=== PATIENT | male | born 1945 | race Caucasian/White ===

== ENCOUNTER 2016-09-19 15:02 | Inpatient (IN) ==
[2016-09-19] MEDS ORDERED: ASPIRIN 325 MG TABLET PO STA (16:25)
[2016-09-19] MEDS ORDERED: NITROGLYCERIN SL 0.4 MG TABLET SL STA (16:25)
--- NOTE | 2016-09-19 16:29 | Emergency Department Note ---
Arrival - Arrival Chief Complaint: Chest Pain Stated Complaint: chest pain/headaches/stomach ache ED Nursing Triage Note: reports pain in center of chest center of abdomen and h/ a that started one week. denies n/v/d. Mode of Arrival: Ambulatory Limitations: No Limitations Source: Patient, Family Time Seen by Provider: 09/19/16 16:10 - History of Present Illness HPI Narrative: The patient complains of a headache, dull, upper sternum and abdominal pain for the past 2 days. He has had some nausea but no vomiting or diaphoresis. He has had some shortness of breath with exertion "lately" but this started well before the chest pain. He notes no exacerbating or relieving factors. Patient has a history of hypertension, CHF and diabetes. He has had a cath in the past but does not know whether he has a stent or not. Allergies/Adverse Reactions: Allergies Allergy/AdvReac Type Severity Reaction Status Date / Time No Known Allergies Allergy Unverified 09/19/16 15:10 Home Medications: Home Medications Medication Instructions Recorded Confirmed Type Atorvastatin Calcium 20 mg PO BEDTIME 09/19/16 09/19/16 History Carvedilol [Coreg] 25 mg PO BID 09/19/16 09/19/16 History Finasteride [Proscar] 5 mg PO BEDTIME 09/19/16 09/19/16 History Furosemide Tab [Lasix Tab] 80 mg PO DAILY 09/19/16 09/19/16 History Losartan Potassium [Cozaar] 100 mg PO DAILY 09/19/16 09/19/16 History Magnesium 250 mg PO QAM 09/19/16 09/19/16 History Metformin HCl 500 mg PO BID 09/19/16 09/19/16 History Omeprazole [Prilosec] 20 mg PO DAILY 09/19/16 09/19/16 History Potassium Chloride 20 mg PO BID 09/19/16 09/19/16 History Ranolazine [Ranexa] 500 mg PO BID 09/19/16 09/19/16 History Tamsulosin [Flomax] 0.4 mg PO BEDTIME 09/19/16 09/19/16 History Warfarin [Coumadin] 4 mg PO TUTHSA 09/19/16 09/19/16 History Warfarin [Coumadin] 6 mg PO SUMOWEFR 09/19/16 09/19/16 History amLODIPine [Norvasc] 10 mg PO DAILY 09/19/16 09/19/16 History cloNIDine HCl [Clonidine HCl] 0.1 mg PO BID 09/19/16 09/19/16 History glipiZIDE [Glipizide] 10 mg PO BID 09/19/16 09/19/16 History Review of System - Review of System 12 point system: reviewed and no additional remarkable complaints except as stated - Review of System Constitutional: Absent: fever Respiratory: Absent: cough, respiratory distress, wheezing Cardiovascular: Present: chest pain, dyspnea on exertion, edema (Chronic). Absent: palpitations, orthopnea Gastrointestinal: Present: abdominal pain, nausea. Absent: vomiting, diarrhea, constipation Musculoskeletal: Present: neck pain. Absent: arm pain, back pain Neurological: Present: headache Medical,Surgical,& Family Hx - Medical History Cardio: History of: CHF, Hypertension Endocrine: History of: Diabetes Mellitus (NIDDM), Dyslipidemia - Surgical History Cardiac Surgeries: Sugical HX of: Cardiac Catheterization (Results are unknown) - Family History Family History: noncontributory - Social History Smoking Status: Never smoker Exam Physical Examination: GENERAL: Alert. No acute distress. HEENT: Normocephalic and atraumatic. There is no nasal drainage. No pharyngeal erythema or exudate. NECK: Normal inspection. Supple. No lymphadenopathy or meningismus. LUNGS: No respiratory distress. Clear to auscultation bilaterally, no wheezes, rales or rhonchi. HEART: Regular rate and rhythm. 2/6 systolic murmur. ABDOMEN: Soft, nontender and nondistended with normoactive bowel sounds. Morbidly obese. Small left lower abdominal wall hernia. Easily reduced. Nontender. BACK: Normal inspection. SKIN: Color normal. Warm and dry. EXTREMITIES: Nontender. Normal range of motion. Pitting edema to the mid tibias bilaterally. NEUROLOGICAL/PSYCHIATRIC: Alert and oriented -3 with normal mood and affect. Cranial nerves normal. No motor or sensory deficit. Vital Signs: Vital Signs Temperature 98.4 F 09/19/16 15:07 Pulse Rate 60 09/19/16 15:07 Respiratory Rate 18 09/19/16 16:15 Blood Pressure 137/84 09/19/16 15:07 O2 Sat by Pulse Oximetry 95 09/19/16 15:07 Course - Reevaluation(s) Reevaluation #1: The patient's workup is essentially negative, however, he has multiple risk factors and will need to be admitted for rule out. I have discussed the patient with the hospitalist service who will see him and admit. Time: 18:22 Results - Labs CBC & BMP: 09/19/16 16:55 09/19/16 16:55 Lab Results: I have reviewed the patients labs - Impressions Chest x-ray shows:Mild platelike scar or subsegmental atelectasis left lung base. No acute abnormality or significant change otherwise KUB shows no acute abnormality. EKG shows a sinus bradycardia at 55 with a nonspecific intraventricular conduction delay and a nonspecific ST T-wave abnormality.
[2016-09-19 17:07] LABS: Basophils % 0.5 % (0.0-0.8); Eosinophils # 0.1 10*3/uL (0.0-0.87); Eosinophils % 0.8 % (0.00-10.9); Hematocrit 33.6 VOL% (42.0-52.0); Hemoglobin 11.2 GM/DL (14.0-18.0); Immature Granulocytes % 0.3 %; Immature Granulocytes Absolute 0.02 #; Lymphocytes # 2.6 10*3/uL (1.4-4.0); Lymphocytes % 33.9 % (21.2-54.2); Mean Corpuscular HGB Conc 33.3 GM/DL (32-36); Mean Corpuscular Hemoglobin 28 PG (27-34); Mean Corpuscular Volume 85.3 FL (87-102); Mean Platelet Volume 10.1 FL (9.6-12.0); Monocytes # 0.7 10*3/uL (0.11-0.8); Monocytes % 9.1 % (1.7-12.7); Neutrophils # 4.2 10*3/uL (1.4-7.4); Neutrophils % 55.4 % (38.7-73.9); Platelet Count 214 T/CUMM (130-400); Red Blood Count 3.94 MC/CUMM (3.8-5.5); White Blood Count 7.7 T/CUMM (4-12)
--- NOTE | 2016-09-19 17:10 | XRay Report ---
History: Chest pain Date: 09/19/2016 Study: Chest x-ray AP portable Comparison exam: May 04, 2008 chest x-ray The cardiac silhouette is not enlarged. There is no mediastinal mass. The pulmonary vasculature is not engorged. The lungs are clear except for some minor platelike scar or subsegmental atelectasis in the lingula. There is no gross pleural effusion. There is mild thoracic spondylosis. There is no acute osseous abnormality. Impression: Mild platelike scar or subsegmental atelectasis left lung base. No acute abnormality or significant change otherwise PROCEDURE INTERPRETED AT [facility] DEPARTMENT OF RADIOLOGY Final Report Signed by: Dr. Kristen Jones
--- NOTE | 2016-09-19 17:11 | XRay Report ---
History: Abdominal pain Date: 09/19/2016 Study: KUB Comparison exam: No previous similar The bowel gas pattern is nonobstructive without gross mass lesion. Some scattered stool and air are noted in the normal caliber colon. Surgical clips and maricruz overlie the right upper abdomen. There is moderate lumbar spondylosis. Phleboliths overlie the left hemipelvis. Impression: No definite acute abnormality PROCEDURE INTERPRETED AT [facility] DEPARTMENT OF RADIOLOGY Final Report Signed by: Dr. Kristen Jones
[2016-09-19] MEDS ORDERED: ASPIRIN 325 MG TABLET ONE (17:13)
[2016-09-19] MEDS ORDERED: NITROGLYCERIN SL 0.4 MG TABLET SL ONE (17:13)
[2016-09-19 17:23] LABS: D-Dimer <= 0.5 MG/L FEU; INR 1.9; PT Patient Result 20.7 SECS; Partial Thromboplastin Time 32.7 SECS (0-40)
[2016-09-19 17:46] LABS: Alanine Aminotransferase 32 U/L (16-61); Albumin 3.2 G/DL (3.4-5.0); Alkaline Phosphatase 56 U/L (45-117); Amylase 92 U/L (25-115); Aspartate Amino Transferase 22 U/L (0-37); Blood Urea Nitrogen 32 MG/DL (7-18); Calcium 8.8 MG/DL (8.5-10.1); Glucose 140 MG/DL (74-106); Osmolality,Calculated 285.5 MOS/KG (273-304); Potassium 3.2 MMOL/L (3.5-5.1); Sodium 139 MMOL/L (136-145); Total Protein 6.5 G/DL (6.4-8.3); Troponin I Only < 0.015 NG/ML (0.00-0.045)
[2016-09-19 17:52] LABS: Free T4 (Free Thyroxine) 1.03 NG/DL (0.76-1.46); Thyroid Stimulating Hormone 1.86 uIU/ml (0.358-3.74)
--- NOTE | 2016-09-19 19:02 | Hospitalist History & Physical ---
<Luz Maria Rey - Last Filed: 09/19/16 18:56> Assessment and Plan (1) Chest pain Status: Acute Assessment and plan: Admit to telemetry. Serial cardial enzymes and EKGs. Echo in am. consult cardiology. BMP in am. Current Visit: Yes (2) Hypertension Status: Acute Assessment and plan: Restart home meds. Monitor routine vitals. Current Visit: Yes (3) Dyslipidemia Status: Acute Assessment and plan: Lipid panel in am. Restart home meds. Current Visit: Yes (4) Hypokalemia Status: Acute Assessment and plan: K 3.2 Replace potassium. Recheck in am. Current Visit: Yes (5) Congestive heart failure (CHF) Status: Acute Assessment and plan: BNP is 56. Pt. takes lasix 80 daily. Current Visit: Yes (6) Diabetes Status: Acute Assessment and plan: Accuchecks ACHS. SSI. Hgb A1c in am. Current Visit: Yes (7) History of TIA (transient ischemic attack) Status: Chronic Current Visit: Yes History of Present Illness Chief complaint: Chest pain History of present illness: Mr. Leach is a 71 year old obese white male with a history of GERD, hypertension , CHF, TIA, diabetes, dyslipidemia, and BPH presents to the ED with complaints of chest pain. Patient states that he has been experiencing this chest pain on and off for the last several months but has gradually worsened over the last 2 days. Patient states that the pain is located on the left side of his chest and sometimes radiates into his neck. The pain is described as dull and occurred at rest and with movement. Patient denies vomiting or diaphoresis but reports some nausea and shortness of breath in conjunction with the chest pain. Patient states he has a family history of heart disease with a older brother dying from heart attack. Patient's PCP is Dr. Cheng. Patient denies any other complaints in the ED at this time. Patient's case has been discussed with Dr. Garcia and the patient will be admitted to the hospitalist service for further evaluation and treatment. Home Medications Medication Instructions Recorded Confirmed Type Atorvastatin Calcium 20 mg PO BEDTIME 09/19/16 09/19/16 History Carvedilol [Coreg] 25 mg PO BID 09/19/16 09/19/16 History Finasteride [Proscar] 5 mg PO BEDTIME 09/19/16 09/19/16 History Furosemide Tab [Lasix Tab] 80 mg PO DAILY 09/19/16 09/19/16 History Losartan Potassium [Cozaar] 100 mg PO DAILY 09/19/16 09/19/16 History Magnesium 250 mg PO QAM 09/19/16 09/19/16 History Metformin HCl 500 mg PO BID 09/19/16 09/19/16 History Omeprazole [Prilosec] 20 mg PO DAILY 09/19/16 09/19/16 History Potassium Chloride 20 mg PO BID 09/19/16 09/19/16 History Ranolazine [Ranexa] 500 mg PO BID 09/19/16 09/19/16 History Tamsulosin [Flomax] 0.4 mg PO BEDTIME 09/19/16 09/19/16 History Warfarin [Coumadin] 4 mg PO TUTHSA 09/19/16 09/19/16 History Warfarin [Coumadin] 6 mg PO SUMOWEFR 09/19/16 09/19/16 History amLODIPine [Norvasc] 10 mg PO DAILY 09/19/16 09/19/16 History cloNIDine HCl [Clonidine HCl] 0.1 mg PO BID 09/19/16 09/19/16 History glipiZIDE [Glipizide] 10 mg PO BID 09/19/16 09/19/16 History Allergies Allergy/AdvReac Type Severity Reaction Status Date / Time No Known Allergies Allergy Unverified 09/19/16 15:10 Medical,Surgical,& Family Hx - Medical History Cardio: History of: CHF, Hypertension Neurology: History of: TIA Endocrine: History of: Diabetes Mellitus (NIDDM), Dyslipidemia Gastrointestinal: History of: GERD - Surgical History Cardiac Surgeries: Sugical HX of: Cardiac Catheterization (results are unknown) - Family History Family History: Reports;: Family Heart Disease - Social History Smoking Status: Never smoker Frequency of Alcohol Use: None Type of Drug Use: None Marital Status: Lives With:: Spouse Functional capacity: independent ambulation (but requests services for walker.) - Constitutional Constitutional: Present: weakness. Absent: chills, fever(s) - EENT Eyes: Present: requires corrective lense Ears: Present: decreased hearing Nose, mouth and throat: Present: headache(s). Absent: epistaxis - Cardiovascular Cardiovascular: Present: chest pain at rest, chest pain with activity, dyspnea, dyspnea on exertion, edema. Absent: diaphoresis - Respiratory Respiratory: Present: dyspnea on exertion. Absent: cough - Gastrointestinal Gastrointestinal: Present: nausea. Absent: abdominal pain, vomiting - Genitourinary Genitourinary: Present: urinary frequency - Psychiatric Psychiatric: Absent: anxiety, depression - Endocrine Endocrine: Present: heat intolerance, polyuria Exam - Constitutional Vitals: Period Temp Pulse Resp BP Sys/Mane Pulse Ox Last 24 Hr 98.4 F-98.4 F 60-60 18-20 137-137/84-84 95 General appearance: no acute distress, over weight - Head Head exam: Present: normal inspection, normocephalic - Eye Eye exam: Present: EOMI. Absent: scleral icterus Pupils: Present: JAJA. Absent: fixed - ENT ENT exam: Present: normal exam. Absent: normal oropharynx - Neck Neck exam: Present: normal inspection - Respiratory Respiratory exam: Present: clear to auscultation bilaterally. Absent: wheezes - Cardiovascular Cardiovascular exam: Present: regular rate and rhythm - GI/Abdominal GI/Abdominal exam: Present: normal bowel sounds, soft. Absent: tenderness - Extremities Exam Extremities exam: Present: normal capillary refill, edema - Neurological Exam Neurological exam: Present: alert, oriented X3 - Psychiatric Psychiatric exam: Present: normal affect, normal mood - Skin Skin exam: Present: normal color, warm Results - Labs CBC & BMP: 09/19/16 16:55 09/19/16 16:55 Lab Results: I have reviewed the past 24 hour labs <Patricia Garcia - Last Filed: 09/19/16 19:36> Assessment and Plan (1) Chest pain Status: Acute Current Visit: Yes (2) Congestive heart failure (CHF) Status: Acute Current Visit: Yes (3) Diabetes Status: Acute Assessment and plan: cont glipizide Current Visit: Yes (4) Dyslipidemia Status: Acute Current Visit: Yes (5) Hypertension Status: Acute Assessment and plan: hold coreg due to bradycardia Current Visit: Yes (6) Hypokalemia Status: Acute Current Visit: Yes (7) History of TIA (transient ischemic attack) Status: Chronic Assessment and plan: cont coumadin Current Visit: Yes (8) DENY (obstructive sleep apnea) Status: Acute Assessment and plan: consult Dr. Rousseau on Thursday Current Visit: Yes (9) Bradycardia Status: Acute Assessment and plan: hold, at risk for sleep apnea Current Visit: Yes (10) Acute on chronic renal failure Status: Acute Assessment and plan: gentle hydration, hold lasix Current Visit: Yes History of Present Illness History of present illness: Mr. Leach is a 71 year old male seen and examined. History and physical reviewed and edited. - Genitourinary Genitourinary: Absent: dysuria - Musculoskeletal Musculoskeletal: Absent: arthralgias - Neurological Neurological: Absent: confusion, headache(s), syncope - Endocrine Endocrine: Present: fatigue - Hematologic/Lymphatic Hematologic/Lymphatic: Present: easy bleeding, easy bruising Exam - Constitutional Vitals: Period Temp Pulse Resp BP Sys/Mane Pulse Ox Last 24 Hr 98.4 F-98.4 F 45-60 17-21 137-172/76-98 95-100 - ENT ENT exam: Present: normal external ear exam - Neck Neck exam: Absent: thyromegaly - Cardiovascular Cardiovascular exam: Present: bradycardia, regular rate and rhythm. Absent: systolic murmur - GI/Abdominal GI/Abdominal exam: Absent: distended - Neurological Exam Neurological exam: Present: CN II-XII intact, reflexes normal. Absent: motor sensory deficit Results - Labs CBC & BMP: 09/19/16 16:55 09/19/16 16:55 - Diagnostic Findings Procedure: Chest x-ray: report reviewed by me (left atelectasis), KUB x-ray: report reviewed by me (scattered stool )
[2016-09-19] MEDS ORDERED: LACTULOSE 160 GM/240 ML BOTTLE PO SCH (20:00)
[2016-09-19] MEDS ORDERED: ONDANSETRON 4 MG/2 ML VIAL IV PRN (20:01)
[2016-09-19] MEDS ORDERED: DEXTROSE 50% 25 GM/50 ML VIAL IV PRN (20:01)
[2016-09-19] MEDS ORDERED: ACETAMINOPHEN 325 MG TABLET PO PRN (20:01)
[2016-09-19] MEDS ORDERED: GLUCAGON 1 MG VIAL IM PRN (20:01)
[2016-09-19] MEDS: FINASTERIDE 5 MG TABLET PO SCH (22:49)
[2016-09-19] MEDS: ATORVASTATIN 20 MG TABLET PO SCH (22:49)
[2016-09-19] MEDS: TAMSULOSIN 0.4 MG CAPSULE PO SCH (22:49)
[2016-09-19] MEDS: glipiZIDE 10 MG TABLET PO SCH (22:49)
[2016-09-19] MEDS: SODIUM CHLOR 0.45% KCL 20 MEQ 20 MEQ/1,000 ML BAG IV SCH (22:49)
[2016-09-19] MEDS: INSULIN LISPRO 100 UNIT/ML SUBCUT SCH (22:50)
[2016-09-20 05:57] LABS: Calcium 8.3 MG/DL (8.5-10.1); Osmolality,Calculated 281.4 MOS/KG (273-304); Risk Ratio 3.03
[2016-09-20 06:32] LABS: Basophils % 0.2 % (0.0-0.8); Eosinophils # 0.1 10*3/uL (0.0-0.87); Eosinophils % 0.9 % (0.00-10.9); Hematocrit 21.7 VOL% (42.0-52.0); Immature Granulocytes % 0.3 %; Immature Granulocytes Absolute 0.02 #; Lymphocytes % 33.9 % (21.2-54.2); Mean Corpuscular HGB Conc 32.3 GM/DL (32-36); Mean Corpuscular Hemoglobin 28 PG (27-34); Mean Corpuscular Volume 87.9 FL (87-102); Mean Platelet Volume 10.6 FL (9.6-12.0); Monocytes # 0.4 10*3/uL (0.11-0.8); Monocytes % 7.1 % (1.7-12.7); Neutrophils # 3.3 10*3/uL (1.4-7.4); Neutrophils % 57.6 % (38.7-73.9); Platelet Count 118 T/CUMM (130-400); Red Blood Count 2.47 MC/CUMM (3.8-5.5); Red Cell Distribution Width 15.8 % (9.3-17.3); White Blood Count 5.8 T/CUMM (4-12)
[2016-09-20 06:42] LABS: INR 2.3
[2016-09-20 06:44] LABS: PT Patient Result 25.4 SECS
--- NOTE | 2016-09-20 06:48 | EKG Report ---
Stationary ECG Study [facility] ER Test Date: 09/19/2016 3:12:27 PM Pat Name: SARA DICKERSON Department: Room: 265 Gender: M [employer]: : 1945 Requested by: Aldo Griffith Order Number: [id number] Reading MD: SANJEEV JACKSON Intervals [place] Rate: 55 P: 42 CO: 142 QRS: 18 QRSD: 128 T: 71 QT: 439 QTc: 429 Interpretive Statements SINUS BRADYCARDIA NONSPECIFIC INTRAVENTRICULAR CONDUCTION DELAY Electronically Signed On 09-22-16 06:17:30 CDT by SANJEEV JACKSON [email or web address]
[2016-09-20] MEDS: SODIUM CHLOR 0.45% KCL 20 MEQ 20 MEQ/1,000 ML BAG IV SCH ×2 (06:56→16:20)
[2016-09-20 06:57] LABS: Apearance,Urine Slightly Hazy (Clear); Bacteria,Urine Occasional /HPF (Few); Bilirubin,Urine Negative (Negative); Blood, Urine Moderate mg/dL (Negative); Glucose,Urine (UA) Negative (Negative); Ketones,Urine Negative (Negative); Mucus,Urine Occasional /LPF (Occasional); Nitrite,Urine Negative (Negative); Protein,Urine Negative; RBC,Urine 24 /HPF (0-4); Squamous Epithelial Cell,Urine Few /HPF (0-10); Urine Specific Gravity 1.008 (1.001-1.035); Urine Urobilinogen < 2.0 EU/DL (0.2-1.0); WBC,Urine 120 /HPF (0-6)
[2016-09-20 06:58] LABS: Urine Color Light Yellow (Yellow)
[2016-09-20 07:04] LABS: Troponin I Only < 0.015 NG/ML (0.00-0.045)
[2016-09-20] MEDS ORDERED: ASPIRIN 325 MG TABLET PO SCH (09:00)
[2016-09-20] MEDS: INSULIN LISPRO 100 UNIT/ML SUBCUT SCH ×4 (09:03→22:05)
[2016-09-20] MEDS: POTASSIUM CHLORIDE 20 MEQ TABLET PO PRN (09:04)
[2016-09-20] MEDS: LACTULOSE 20 GM/30 ML UDCUP PO SCH ×2 (09:04→10:48)
[2016-09-20] MEDS: amLODIPine 10 MG TABLET PO SCH (09:04)
[2016-09-20] MEDS: glipiZIDE 10 MG TABLET PO SCH (09:04)
--- NOTE | 2016-09-20 10:23 | Cardiology Consult Note ---
Assessment and Plan (1) Bradycardia Status: Acute Current Visit: Yes (2) Congestive heart failure (CHF) Status: Acute Current Visit: Yes (3) Hypertension Status: Acute Current Visit: Yes (4) Anemia Status: Acute Assessment and plan: He has had a significant drop in his hematocrit from 33-21. I will stop his Coumadin. I will hold fresh frozen or vitamin K until we repeat his counts. Current Visit: Yes History of Present Illness - Consult Narrative Reason for consult: Chest discomfort with normal troponins History of present illness: Mr. Leach is a 71 year old male who has a history of atherosclerosis manifest as a history of TIAs. He is a diabetic and has a history of hypertension dyslipidemia. His family states that he has been experiencing chest pain over the last week to 10 days which he describes as an epigastric burning discomfort not associated with exertion. He has had some exertional dyspnea. He denies a history of palpitations or syncope. On admission his hematocrit was 33 and today is 21 which strongly suggest that he is GI bleeding. He flatly denies any history of bleeding. He has not had melena. Family states that he had been vomiting at home but no coffee grounds as best I can tell from the history. He is not orthostatic. He does complain of some dizziness on standing. He is admitted now for evaluation related to chest discomfort and a history of congestive heart failure. He has been told that he has had a heart murmur in the past as well as a history of an aneurysm. CC: Patricia Garcia MD - Home Medications and Allergies Home Medications: Home Medications Medication Instructions Recorded Confirmed Type Atorvastatin Calcium 20 mg PO BEDTIME 09/19/16 09/19/16 History Carvedilol [Coreg] 25 mg PO BID 09/19/16 09/19/16 History Finasteride [Proscar] 5 mg PO BEDTIME 09/19/16 09/19/16 History Furosemide Tab [Lasix Tab] 80 mg PO DAILY 09/19/16 09/19/16 History Losartan Potassium [Cozaar] 100 mg PO DAILY 09/19/16 09/19/16 History Magnesium 250 mg PO QAM 09/19/16 09/19/16 History Metformin HCl 500 mg PO BID 09/19/16 09/19/16 History Omeprazole [Prilosec] 20 mg PO DAILY 09/19/16 09/19/16 History Potassium Chloride 20 mg PO BID 09/19/16 09/19/16 History Ranolazine [Ranexa] 500 mg PO BID 09/19/16 09/19/16 History Tamsulosin [Flomax] 0.4 mg PO BEDTIME 09/19/16 09/19/16 History Warfarin [Coumadin] 4 mg PO TUTHSA 09/19/16 09/19/16 History Warfarin [Coumadin] 6 mg PO SUMOWEFR 09/19/16 09/19/16 History amLODIPine [Norvasc] 10 mg PO DAILY 09/19/16 09/19/16 History cloNIDine HCl [Clonidine HCl] 0.1 mg PO BID 09/19/16 09/19/16 History glipiZIDE [Glipizide] 10 mg PO BID 09/19/16 09/19/16 History Allergies/Adverse Reactions: Allergies Allergy/AdvReac Type Severity Reaction Status Date / Time No Known Allergies Allergy Unverified 09/19/16 15:10 Medical,Surgical,& Family Hx - Medical History Cardio: History of: CHF, Hypertension Neurology: History of: TIA Endocrine: History of: Diabetes Mellitus (NIDDM), Dyslipidemia Gastrointestinal: History of: GERD - Surgical History Cardiac Surgeries: Sugical HX of: Cardiac Catheterization (results are unknown) Neurologic Surgeries: Patient denies: Neurologic Surgery Abdominal Surgeries: Surgical HX of: Abdominal Surgery, Cholecystectomy, Hernia Repair Reproductive Surgeries: Patient denies;: Genitourinary Surgery - Family History Family History: Reports;: Family Heart Disease - Social History Smoking Status: Never smoker Frequency of Alcohol Use: None Type of Drug Use: None Physical Examination Vital Signs Temp Pulse Resp BP Pulse Ox 98.4 F 60 20 137/84 95 09/19/16 15:07 09/19/16 15:07 09/19/16 15:07 09/19/16 15:07 09/19/16 15:07 Exam: Physical examination: General: The patient is awake and alert and oriented -3. Mood and affect are normal. HEENT: Normocephalic, sclera are clear there are no lid xanthelasmas noted. Oral mucosa is free of cyanosis or pallor. Neck: The neck is supple without JVD. Carotid upstrokes are normal volume and amplitude. There is no audible bruit. There is no palpable thyroid. Trachea is midline. Chest: Lungs: The patient is comfortable at rest without intercostal retractions or abdominal breathing. There are no adventitial sounds rales rubs rhonchi or wheezes noted. Cardiovascular: The PMI is nondisplaced. No palpable thrill S3 or S4. There is a regular rate and rhythm with a grade 2 murmur of what sounds like aortic stenosis. He also has a murmur that is consistent with mitral insufficiency heard best at the lower left sternal border and apex.. Dorsalis pedis posterior tibial pulses are 1+ and equal and femoral pulses are 2+ and equal bilaterally. Abdomen: Abdomen is protuberant and nontender with normal active bowel sounds. There is no palpable mass or organomegaly noted. There is no midline bruit. Extremities exam: There is no cyanosis clubbing with 1+ pitting edema in the lower extremities bilaterally.. Skin: Skin is warm and dry without ecchymosis or urticaria or skin rash. There are no palpable nodules. Musculoskeletal: There is no kyphosis or scoliosis noted. Result/EKG - Labs CBC & BMP: 09/20/16 04:30 09/20/16 04:30 Labs: Laboratory Results - last 24 hr 09/19/16 09/19/16 09/19/16 16:55 16:55 16:55 WBC RBC Hgb Hct MCV MCH MCHC RDW Plt Count MPV Neut % (Auto) Lymph % (Auto) [place] % (Auto) Eos % (Auto) Baso % (Auto) Neut # (Auto) Lymph # (Auto) [place] # (Auto) Eos # (Auto) Baso # (Auto) Immature Gran % Nucleated RBC % Immature Gran # Nucleated RBCs # Immature Plt Fraction INR 1.9 PT Patient/Control Mix 20.7 D-Dimer, Quantitative <= 0.5 Circ Anticoag PTT 32.7 Sodium 139 Potassium 3.2 L Chloride 98 Carbon Dioxide 34 H Anion Gap 10.2 BUN 32 H Creatinine 2.00 H GFR Calculation 49 BUN/Creatinine Ratio 16.00 Glucose 140 H POC Glucose Hemoglobin A1c Calculated Osmolality 285.5 Calcium 8.8 Magnesium 2.0 Total Bilirubin 0.40 AST 22 ALT 32 Alkaline Phosphatase 56 Total Creatine Kinase 76 CK-MB (CK-2) < 1.0 Troponin I < 0.015 B-Natriuretic Peptide 56 Total Protein 6.5 Albumin 3.2 L Globulin 3.3 Albumin/Globulin Ratio 0.9 L Triglycerides Cholesterol LDL Cholesterol VLDL Cholesterol HDL Cholesterol Heart Disease Risk Ratio Amylase 92 Lipase 249.0 Free T4 TSH 3rd Generation Urine Color Urine Appearance Urine pH Ur Specific [place] Urine Protein Urine Glucose (UA) Urine Ketones Urine Blood Urine Nitrate Urine Bilirubin Urine Urobilinogen Urine Leukocytes Urine RBC Urine WBC Ur Squamous Epith Cells Urine Bacteria Urine Mucus Ur Culture Indicated? 09/19/16 09/19/16 09/19/16 16:55 16:55 20:19 WBC 7.7 RBC 3.94 Hgb 11.2 L Hct 33.6 L MCV 85.3 L MCH 28 MCHC 33.3 RDW 16.0 Plt Count 214 MPV 10.1 Neut % (Auto) 55.4 Lymph % (Auto) 33.9 Woodward % (Auto) 9.1 Eos % (Auto) 0.8 Baso % (Auto) 0.5 Neut # (Auto) 4.2 Lymph # (Auto) 2.6 Woodward # (Auto) 0.7 Eos # (Auto) 0.1 Baso # (Auto) 0.0 Immature Gran % 0.3 Nucleated RBC % 0.0 Immature Gran # 0.02 Nucleated RBCs # 0.00 Immature Plt Fraction 0.0 INR PT Patient/Control Mix D-Dimer, Quantitative Circ Anticoag PTT Sodium Potassium Chloride Carbon Dioxide Anion Gap BUN Creatinine GFR Calculation BUN/Creatinine Ratio Glucose POC Glucose Hemoglobin A1c Calculated Osmolality Calcium Magnesium Total Bilirubin AST ALT Alkaline Phosphatase Total Creatine Kinase CK-MB (CK-2) Troponin I < 0.015 B-Natriuretic Peptide Total Protein Albumin Globulin Albumin/Globulin Ratio Triglycerides Cholesterol LDL Cholesterol VLDL Cholesterol HDL Cholesterol Heart Disease Risk Ratio Amylase Lipase Free T4 1.03 TSH 3rd Generation 1.860 Urine Color Urine Appearance Urine pH Ur Specific [place] Urine Protein Urine Glucose (UA) Urine Ketones Urine Blood Urine Nitrate Urine Bilirubin Urine Urobilinogen Urine Leukocytes Urine RBC Urine WBC Ur Squamous Epith Cells Urine Bacteria Urine Mucus Ur Culture Indicated? 09/19/16 09/19/16 09/20/16 21:40 23:44 04:30 WBC RBC Hgb Hct MCV MCH MCHC RDW Plt Count MPV Neut % (Auto) Lymph % (Auto) Woodward % (Auto) Eos % (Auto) Baso % (Auto) Neut # (Auto) Lymph # (Auto) [place] # (Auto) Eos # (Auto) Baso # (Auto) Immature Gran % Nucleated RBC % Immature Gran # Nucleated RBCs # Immature Plt Fraction INR PT Patient/Control Mix D-Dimer, Quantitative Circ Anticoag PTT Sodium Potassium Chloride Carbon Dioxide Anion Gap BUN Creatinine GFR Calculation BUN/Creatinine Ratio Glucose POC Glucose 101 Hemoglobin A1c Calculated Osmolality Calcium Magnesium Total Bilirubin AST ALT Alkaline Phosphatase Total Creatine Kinase CK-MB (CK-2) Troponin I < 0.015 < 0.015 B-Natriuretic Peptide Total Protein Albumin Globulin Albumin/Globulin Ratio Triglycerides Cholesterol LDL Cholesterol VLDL Cholesterol HDL Cholesterol Heart Disease Risk Ratio Amylase Lipase Free T4 TSH 3rd Generation Urine Color Urine Appearance Urine pH Ur Specific [place] Urine Protein Urine Glucose (UA) Urine Ketones Urine Blood Urine Nitrate Urine Bilirubin Urine Urobilinogen Urine Leukocytes Urine RBC Urine WBC Ur Squamous Epith Cells Urine Bacteria Urine Mucus Ur Culture Indicated? 09/20/16 09/20/16 09/20/16 04:30 04:30 04:30 WBC 5.8 RBC 2.47 L D Hgb 7.0 L D Hct 21.7 L MCV 87.9 MCH 28 MCHC 32.3 RDW 15.8 Plt Count 118 L D MPV 10.6 Neut % (Auto) 57.6 Lymph % (Auto) 33.9 Woodward % (Auto) 7.1 Eos % (Auto) 0.9 Baso % (Auto) 0.2 Neut # (Auto) 3.3 Lymph # (Auto) 2.0 Woodward # (Auto) 0.4 Eos # (Auto) 0.1 Baso # (Auto) 0.0 Immature Gran % 0.3 Nucleated RBC % 0.0 Immature Gran # 0.02 Nucleated RBCs # 0.00 Immature Plt Fraction 0.0 INR PT Patient/Control Mix D-Dimer, Quantitative Circ Anticoag PTT Sodium 140 Potassium 3.0 L Chloride 100 Carbon Dioxide 31 Anion Gap 12.0 BUN 27 H Creatinine 1.60 H GFR Calculation 64 BUN/Creatinine Ratio 16.00 Glucose 70 L POC Glucose Hemoglobin A1c Calculated Osmolality 281.4 Calcium 8.3 L Magnesium Total Bilirubin AST ALT Alkaline Phosphatase Total Creatine Kinase CK-MB (CK-2) Troponin I B-Natriuretic Peptide 46 Total Protein Albumin Globulin Albumin/Globulin Ratio Triglycerides 165 H Cholesterol 115 LDL Cholesterol 51.0 VLDL Cholesterol 33.0 HDL Cholesterol 38 L Heart Disease Risk Ratio 3.03 Amylase Lipase Free T4 TSH 3rd Generation Urine Color Urine Appearance Urine pH Ur Specific [place] Urine Protein Urine Glucose (UA) Urine Ketones Urine Blood Urine Nitrate Urine Bilirubin Urine Urobilinogen Urine Leukocytes Urine RBC Urine WBC Ur Squamous Epith Cells Urine Bacteria Urine Mucus Ur Culture Indicated? 09/20/16 09/20/16 09/20/16 04:30 04:30 04:30 WBC RBC Hgb Hct MCV MCH MCHC RDW Plt Count MPV Neut % (Auto) Lymph % (Auto) [place] % (Auto) Eos % (Auto) Baso % (Auto) Neut # (Auto) Lymph # (Auto) [place] # (Auto) Eos # (Auto) Baso # (Auto) Immature Gran % Nucleated RBC % Immature Gran # Nucleated RBCs # Immature Plt Fraction INR 2.3 PT Patient/Control Mix 25.4 D D-Dimer, Quantitative Circ Anticoag PTT Sodium Potassium Chloride Carbon Dioxide Anion Gap BUN Creatinine GFR Calculation BUN/Creatinine Ratio Glucose POC Glucose Hemoglobin A1c 6.3 Calculated Osmolality Calcium Magnesium Total Bilirubin AST ALT Alkaline Phosphatase Total Creatine Kinase 63 CK-MB (CK-2) 1.1 Troponin I < 0.015 B-Natriuretic Peptide Total Protein Albumin Globulin Albumin/Globulin Ratio Triglycerides Cholesterol LDL Cholesterol VLDL Cholesterol HDL Cholesterol Heart Disease Risk Ratio Amylase Lipase Free T4 TSH 3rd Generation Urine Color Urine Appearance Urine pH Ur Specific [place] Urine Protein Urine Glucose (UA) Urine Ketones Urine Blood Urine Nitrate Urine Bilirubin Urine Urobilinogen Urine Leukocytes Urine RBC Urine WBC Ur Squamous Epith Cells Urine Bacteria Urine Mucus Ur Culture Indicated? 09/20/16 09/20/16 06:38 07:09 WBC RBC Hgb Hct MCV MCH MCHC RDW Plt Count MPV Neut % (Auto) Lymph % (Auto) [place] % (Auto) Eos % (Auto) Baso % (Auto) Neut # (Auto) Lymph # (Auto) [place] # (Auto) Eos # (Auto) Baso # (Auto) Immature Gran % Nucleated RBC % Immature Gran # Nucleated RBCs # Immature Plt Fraction INR PT Patient/Control Mix D-Dimer, Quantitative Circ Anticoag PTT Sodium Potassium Chloride Carbon Dioxide Anion Gap BUN Creatinine GFR Calculation BUN/Creatinine Ratio Glucose POC Glucose 99 Hemoglobin A1c Calculated Osmolality Calcium Magnesium Total Bilirubin AST ALT Alkaline Phosphatase Total Creatine Kinase CK-MB (CK-2) Troponin I B-Natriuretic Peptide Total Protein Albumin Globulin Albumin/Globulin Ratio Triglycerides Cholesterol LDL Cholesterol VLDL Cholesterol HDL Cholesterol Heart Disease Risk Ratio Amylase Lipase Free T4 TSH 3rd Generation Urine Color Light yellow Urine Appearance Slightly hazy Urine pH 7.0 Ur Specific [place] 1.008 Urine Protein Negative Urine Glucose (UA) Negative Urine Ketones Negative Urine Blood Moderate Urine Nitrate Negative Urine Bilirubin Negative Urine Urobilinogen < 2.0 H Urine Leukocytes Large H Urine RBC 24 Urine WBC 120 Ur Squamous Epith Cells Few Urine Bacteria Occasional Urine Mucus Occasional Ur Culture Indicated? Results to follow
[2016-09-20] MEDS ORDERED: POTASSIUM CHLORIDE 20 MEQ TABLET PO ONE (10:36)
[2016-09-20] MEDS ORDERED: SODIUM CHLORIDE 0.9% 250 ML IV PRN (10:40)
[2016-09-20 10:51] LABS: Hematocrit 34.2 VOL% (42.0-52.0)
[2016-09-20 10:53] LABS: Hemoglobin 11.3 GM/DL (14.0-18.0)
[2016-09-20 11:15] LABS: Calcium 8.4 MG/DL (8.5-10.1); Osmolality,Calculated 281.7 MOS/KG (273-304); Potassium 3.2 MMOL/L (3.5-5.1)
--- NOTE | 2016-09-20 14:19 | Hospitalist Progress Note ---
Assessment and Plan (1) Chest pain Status: Acute Assessment and plan: serial troponins negative, Cardiology has seen him and feels his chest pain is noncardiac. Current Visit: Yes (2) Congestive heart failure (CHF) Status: Acute Assessment and plan: bnp normal, echo pending, lasix on hold Current Visit: Yes (3) Diabetes Status: Acute Assessment and plan: bs too low in the morning, hgb A1c 6.3, decrease glipizide to once a day. May not be the best drug for him due to his renal failure Current Visit: Yes (4) Dyslipidemia Status: Acute Current Visit: Yes (5) Hypertension Status: Acute Assessment and plan: not controlled added hydralazine Current Visit: Yes (6) Hypokalemia Status: Acute Assessment and plan: replacing and recheck in am Current Visit: Yes (7) History of TIA (transient ischemic attack) Status: Chronic Assessment and plan: cont coumadin 6 mg, pharmacy to dose Current Visit: Yes (8) DENY (obstructive sleep apnea) Status: Acute Assessment and plan: consult Dr. Rousseau on Thursday Current Visit: Yes (9) Bradycardia Status: Acute Assessment and plan: hold, at risk for sleep apnea Current Visit: Yes (10) Acute on chronic renal failure Status: Acute Assessment and plan: gentle hydration, hold lasix, mild improvement, renal us Current Visit: Yes Hospitalist: Subjective Interval history: Patient showed a 4 point drop in hemoglobin overnight from 11-7. Repeat hemoglobin however was still at 11. Potassium repeat was still low and was supplemented. Discussed case with Dr. Skinner. Patient reported he was feeling fine. Patient had an excessive amount of stool on his film from yesterday. He also had urine that looks extremely infected. Exam - Constitutional Vitals: Period Temp Pulse Resp BP Sys/Mane Pulse Ox Last 24 Hr 97.3 F-98.4 F 45-65 16-21 137-187/68-98 95-100 Exam: Heart Rate-[quique] Lungs-[ctab] GI-[+bs soft, NT, obese] Ext-[trace edema has large ankles] Neuro [Motor 5/5], [alert and oriented times 3] psych [normal mood and affect] General [no acute distress] Results - Labs CBC & BMP: 09/20/16 10:35 09/20/16 10:35 Lab Results: I have reviewed the past 24 hour labs
[2016-09-20] MEDS: POTASSIUM CHLORIDE 20 MEQ TABLET PO SCH (16:20)
[2016-09-20] MEDS: cefTRIAXone 1,000 MG in SODIUM CHLORIDE 0.9% 100 ML IV SCH (16:21)
--- NOTE | 2016-09-20 17:55 | Ultrasound Report ---
History: Acute versus chronic renal failure Date: 09/20/2016 Study: Bilateral renal ultrasound kidneys only Comparison exam: No previous currently available Real-time ultrasound images are captured and archived. The right kidney measures 12.5 x 6.1 x 5.9 cm; the left kidney measures 13.4 x 6.3 x 5.8 cm. There is no hydronephrosis or abnormal perinephric fluid. There is color Doppler flow to either kidney. There is no focal renal mass. Impression: No significant abnormality PROCEDURE INTERPRETED AT [facility] DEPARTMENT OF RADIOLOGY Final Report Signed by: Dr. Kristen Jones
[2016-09-20] MEDS ORDERED: WARFARIN 5 MG TABLET PO SCH (18:00)
[2016-09-20] MEDS ORDERED: WARFARIN 2 MG TABLET PO SCH (18:00)
[2016-09-20] MEDS: ATORVASTATIN 20 MG TABLET PO SCH (22:06)
[2016-09-20] MEDS: FINASTERIDE 5 MG TABLET PO SCH (22:06)
[2016-09-20] MEDS: TAMSULOSIN 0.4 MG CAPSULE PO SCH (22:06)
[2016-09-21] MEDS: SODIUM CHLOR 0.45% KCL 20 MEQ 20 MEQ/1,000 ML BAG IV SCH (03:46)
[2016-09-21 05:02] LABS: INR 1.6; PT Patient Result 17.5 SECS
[2016-09-21 05:07] LABS: Calcium 8.9 MG/DL (8.5-10.1); Osmolality,Calculated 283.3 MOS/KG (273-304); Potassium 3.7 MMOL/L (3.5-5.1)
[2016-09-21] MEDS: POTASSIUM CHLORIDE 20 MEQ TABLET PO PRN (07:04)
[2016-09-21] MEDS: POTASSIUM CHLORIDE 20 MEQ TABLET PO SCH (09:15)
[2016-09-21] MEDS: amLODIPine 10 MG TABLET PO SCH (09:15)
[2016-09-21] MEDS: glipiZIDE 10 MG TABLET PO SCH (09:15)
[2016-09-21] MEDS: LACTULOSE 20 GM/30 ML UDCUP PO SCH (09:30)
[2016-09-21] MEDS: INSULIN LISPRO 100 UNIT/ML SUBCUT SCH ×4 (09:30→20:51)
--- NOTE | 2016-09-21 10:31 | Cardiology Progress Note ---
Assessment and Plan (1) Bradycardia Status: Acute Current Visit: Yes (2) Congestive heart failure (CHF) Status: Acute Assessment and plan: The patient's BNP is 46 and for that reason I do not think he is an active heart failure currently. He is a terrible historian and I cannot get much history from him. We are going to review an echocardiogram. Current Visit: Yes (3) Hypertension Status: Acute Current Visit: Yes (4) Anemia Status: Acute Assessment and plan: He has had a significant drop in his hematocrit from 33-21. I will stop his Coumadin. I will hold fresh frozen or vitamin K until we repeat his counts. Current Visit: Yes Cardiology - PN: Subj Interval history: Patient was reported as having a hematocrit of 21 yesterday. Repeat showed a hematocrit of 34. He has an INR today 1.6 and his creatinine is fallen to 1.2 I am going to check a BNP. I do not think this is heart failure is BNP was 46 on presentation. His troponins are negative. I do not see a lot here from a cardiac standpoint. He does have an aortic stenosis murmur but it sounds mild with well-preserved second heart sound noted. A 2D echo is for review. Exam (Progress Note) - Constitutional Vitals: Period Temp Pulse Resp BP Sys/Mane Pulse Ox Last 24 Hr 97.3 F-98.2 F 54-65 16-20 158-186/80-88 93-99 Exam: General:no acute distress. alert and oriented, mood and affect are normal HEENT: no new lesions, sclerae are clear, mouth and pharynx benign Neck: supple, trachea midline, no JVD noted Lungs: no rales ronchi or wheeze is noted. pt comfortable without accesory muscle use to assist with breathing CV: RRR there is a grade 2 murmur of aortic stenosis. There is a grade 2 murmur mitral insufficiency noted as well. No rub or gallop is noted. Abd: soft and nontender, BSNA, no masses. Ext: no cyanosis, clubbing or edema Neuro: grossly intact without focal neurologic deficit. Result/EKG - Labs CBC & BMP: 09/20/16 10:35 09/21/16 04:07 Labs: Laboratory Results - last 24 hr 09/20/16 09/20/16 09/20/16 10:35 10:35 10:40 Hgb 11.3 L D Hct 34.2 L INR PT Patient/Control Mix Sodium 138 Potassium 3.2 L Chloride 98 Carbon Dioxide 35 H Anion Gap 8.2 BUN 25 H Creatinine 1.50 H GFR Calculation 69 BUN/Creatinine Ratio 16.00 Glucose 157 H POC Glucose Calculated Osmolality 281.7 Calcium 8.4 L Blood Type A POSITIVE Antibody Screen Negative Crossmatch See Detail 09/20/16 09/20/16 09/20/16 11:58 17:31 19:31 Hgb Hct INR PT Patient/Control Mix Sodium Potassium Chloride Carbon Dioxide Anion Gap BUN Creatinine GFR Calculation BUN/Creatinine Ratio Glucose POC Glucose 135 H 215 H 216 H Calculated Osmolality Calcium Blood Type Antibody Screen Crossmatch 09/20/16 09/21/16 09/21/16 Unknown 04:07 04:07 Hgb Hct INR 1.6 PT Patient/Control Mix 17.5 D Sodium 141 Potassium 3.7 Chloride 103 Carbon Dioxide 34 H Anion Gap 7.7 BUN 20 H Creatinine 1.20 GFR Calculation 90 BUN/Creatinine Ratio 16.00 Glucose 97 POC Glucose Calculated Osmolality 283.3 Calcium 8.9 Blood Type A POSITIVE Antibody Screen Crossmatch 09/21/16 07:27 Hgb Hct INR PT Patient/Control Mix Sodium Potassium Chloride Carbon Dioxide Anion Gap BUN Creatinine GFR Calculation BUN/Creatinine Ratio Glucose POC Glucose 129 H Calculated Osmolality Calcium Blood Type Antibody Screen Crossmatch
--- NOTE | 2016-09-21 11:13 | ECHO Report ---
Asael Leach Exam Date: 09/20/2016 12:38 Referring Physician: Technologist: Alisha Guillen Age: 71 Ht (in): 74 Wt (lb): 303 Gender: M Exam Location: [facility] Echo Indications: palp, edema, CANDELARIA, chest pain, hx. CHF, HTN, Diabetes, stomach ache, orthopnea BP: 166 / 81 HR: 50 Rhythm: Sinus Technical Quality: Technically difficult study IMPRESSIONS Normal left ventricular cavity size. Moderate concentric left ventricular hypertrophy with diastolic dysfunction. Left ventricular ejection fraction is estimated at 50-55 %. Normal right ventricular size. Normal right atrial size. Normal left atrial size. Mildly thickened mitral valve with mild mitral regurgitation. Aortic valve sclerosis without stenosis or regurgitation. Aortic valve area is 1.3 cm. Aortic valve mean gradient is 15 mmHg. Morphologically normal tricuspid valve. Trace tricuspid valve regurgitation. Morphologically normal pulmonic valve. No pericardial effusion. Normal size aortic root and proximal ascending aorta. MEASUREMENTS (Male / Female) Normal Values 2D ECHO LV Diastolic Diameter PLAX 5.2 cm 4.2 - 5.9 / 3.9 - 5.3 cm LV Systolic Diameter PLAX 3.4 cm LV Fractional Shortening PLAX 35.3 % IVS Diastolic Thickness 1.7 cm 0.6 - 1.0 / 0.6 - 0.9 cm LVPW Diastolic Thickness 1.6 cm 0.6 - 1.0 / 0.6 - 0.9 cm Aortic Root Diameter 3.3 cm LA Systolic Diameter LX 3.1 cm 3.0 - 4.0 / 2.7 - 3.8 cm FINDINGS Left Ventricle Normal left ventricular cavity size. Moderate concentric left ventricular hypertrophy with diastolic dysfunction. Left ventricular ejection fraction is estimated at 50-55 %. Right Ventricle Normal right ventricular size. Right Atrium Normal right atrial size. Left Atrium Normal left atrial size. Mitral Valve Mildly thickened mitral valve with mild mitral regurgitation. Aortic Valve Aortic valve sclerosis without stenosis or regurgitation. Aortic valve area is 1.3 cm. Aortic valve mean gradient is 15 mmHg. Tricuspid Valve Morphologically normal tricuspid valve. Trace tricuspid valve regurgitation. Pulmonic Valve Morphologically normal pulmonic valve. Pericardium No pericardial effusion. Aorta Normal size aortic root and proximal ascending aorta. Ben Skinner MD (Electronically Signed) Final Date: 21 September 2016 11:12
[2016-09-21] MEDS: ALBUTEROL/IPRATROPIUM 3 ML NEB RESP TX SCH ×4 (11:17→23:40)
--- NOTE | 2016-09-21 12:08 | Hospitalist Progress Note ---
Assessment and Plan (1) Chest pain Status: Acute Assessment and plan: Cardiology feels his chest pain is noncardiac in nature no further testing warranted. Current Visit: Yes (2) Congestive heart failure (CHF) Status: Acute Assessment and plan: bnp normal, echo shows an EF of 50-55% with aortic sclerosis and diastolic dysfunction. Patient really does should not carry a diagnosis of congestive heart failure. Current Visit: Yes (3) Diabetes Status: Acute Assessment and plan: hgb A1c 6.3, continue glipizide to once a day. Current Visit: Yes (4) Dyslipidemia Status: Acute Assessment and plan: Continue atorvastatin Current Visit: Yes (5) Hypertension Status: Acute Assessment and plan: not controlled increased hydralazine Current Visit: Yes (6) Hypokalemia Status: Acute Assessment and plan: Resolved Current Visit: Yes (7) History of TIA (transient ischemic attack) Status: Chronic Assessment and plan: Give higher dose of Coumadin 7.5 mg p.o. 1 tonight then continue 6 mg daily. Pharmacy to dose Current Visit: Yes (8) DENY (obstructive sleep apnea) Status: Acute Assessment and plan: consult Dr. Rousseau on Thursday Current Visit: Yes (9) Bradycardia Status: Acute Assessment and plan: Due to sleep apnea Current Visit: Yes (10) Acute on chronic renal failure Status: Acute Assessment and plan: Resolving with IV hydration Hep-Lock fluids today. Current Visit: Yes (11) COPD (chronic obstructive pulmonary disease) Status: Acute Assessment and plan: Continue duo nebs and oxygen. No steroids due to no wheezing Current Visit: Yes Hospitalist: Subjective Interval history: reports they are having a lot of financial problems and are currently living with her children. Will ask social science research assistant to come and talk to them. He would benefit from an nebulizer machine at home. She said he does have sleep apnea but they have not been able to afford the CPAP. Exam - Constitutional Vitals: Period Temp Pulse Resp BP Sys/Mane Pulse Ox Last 24 Hr 97.8 F-98.2 F 54-61 16-20 158-186/80-88 93-99 Exam: Heart Rate-[quique] Lungs-[clear but diminished] GI-[+bs soft, NT, obese] Ext-[trace edema has large ankles] Neuro [Motor 5/5], [alert and oriented times 3] psych [normal mood and affect] General [no acute distress] Results - Labs CBC & BMP: 09/20/16 10:35 09/21/16 04:07 Lab Results: I have reviewed the past 24 hour labs Labs: Urine growing gram-negative rods. - Diagnostic Findings Procedure: Ultrasound: report reviewed by me (Renal ultrasound shows normal- sized kidneys without hydronephrosis)
[2016-09-21 12:21] LABS: Hematocrit 35.4 VOL% (42.0-52.0); Hemoglobin 11.6 GM/DL (14.0-18.0); Mean Corpuscular HGB Conc 32.8 GM/DL (32-36); Mean Corpuscular Hemoglobin 28 PG (27-34); Mean Corpuscular Volume 85.5 FL (87-102); Platelet Count 213 T/CUMM (130-400); Red Blood Count 4.14 MC/CUMM (3.8-5.5); Red Cell Distribution Width 15.8 % (9.3-17.3); White Blood Count 7.6 T/CUMM (4-12)
[2016-09-21 12:22] LABS: Basophils % 0.5 % (0.0-0.8); Eosinophils # 0.1 10*3/uL (0.0-0.87); Eosinophils % 1.4 % (0.00-10.9); Immature Granulocytes % 0.3 %; Immature Granulocytes Absolute 0.02 #; Lymphocytes # 2.3 10*3/uL (1.4-4.0); Lymphocytes % 29.5 % (21.2-54.2); Mean Platelet Volume 10.5 FL (9.6-12.0); Monocytes # 0.5 10*3/uL (0.11-0.8); Monocytes % 6.2 % (1.7-12.7); Neutrophils # 4.7 10*3/uL (1.4-7.4); Neutrophils % 62.1 % (38.7-73.9)
[2016-09-21] MEDS ORDERED: WARFARIN 2 MG TABLET PO SCH (14:29)
[2016-09-21] MEDS: cefTRIAXone 1,000 MG in SODIUM CHLORIDE 0.9% 100 ML IV SCH (16:13)
[2016-09-21] MEDS ORDERED: WARFARIN 7.5 MG TABLET PO ONE (18:00)
[2016-09-21] MEDS ORDERED: WARFARIN 3 MG TABLET PO SCH (18:00)
[2016-09-21] MEDS: TAMSULOSIN 0.4 MG CAPSULE PO SCH (20:51)
[2016-09-21] MEDS: FINASTERIDE 5 MG TABLET PO SCH (20:51)
[2016-09-21] MEDS: ATORVASTATIN 20 MG TABLET PO SCH (20:51)
[2016-09-22] MEDS: ALBUTEROL/IPRATROPIUM 3 ML NEB RESP TX SCH ×6 (03:28→23:05)
[2016-09-22 05:02] LABS: Basophils % 0.5 % (0.0-0.8); Eosinophils # 0.1 10*3/uL (0.0-0.87); Eosinophils % 1.6 % (0.00-10.9); Hematocrit 32.8 VOL% (42.0-52.0); Hemoglobin 10.6 GM/DL (14.0-18.0); Immature Granulocytes % 0.4 %; Immature Granulocytes Absolute 0.03 #; Lymphocytes # 2.9 10*3/uL (1.4-4.0); Lymphocytes % 37.3 % (21.2-54.2); Mean Corpuscular HGB Conc 32.3 GM/DL (32-36); Mean Corpuscular Hemoglobin 28 PG (27-34); Mean Corpuscular Volume 86.1 FL (87-102); Mean Platelet Volume 10.7 FL (9.6-12.0); Monocytes # 0.7 10*3/uL (0.11-0.8); Monocytes % 8.4 % (1.7-12.7); Neutrophils % 51.8 % (38.7-73.9); Platelet Count 204 T/CUMM (130-400); Red Blood Count 3.81 MC/CUMM (3.8-5.5); Red Cell Distribution Width 15.9 % (9.3-17.3); White Blood Count 7.7 T/CUMM (4-12)
[2016-09-22 05:09] LABS: INR 1.5; PT Patient Result 16.4 SECS
[2016-09-22 05:32] LABS: Calcium 8.3 MG/DL (8.5-10.1); Osmolality,Calculated 284.1 MOS/KG (273-304); Potassium 3.8 MMOL/L (3.5-5.1)
[2016-09-22] MEDS: INSULIN LISPRO 100 UNIT/ML SUBCUT SCH ×4 (09:07→21:27)
[2016-09-22] MEDS: glipiZIDE 10 MG TABLET PO SCH (09:20)
[2016-09-22] MEDS: amLODIPine 10 MG TABLET PO SCH (09:20)
[2016-09-22] MEDS: LACTULOSE 20 GM/30 ML UDCUP PO SCH (09:20)
--- NOTE | 2016-09-22 09:39 | Cardiology Progress Note ---
Assessment and Plan - Time spent with patient Time spent with patient: Greater than 30 minutes (1) Chest pain Status: Acute Assessment and plan: SEE PLAN OF CARE LISTED BELOW Current Visit: Yes (2) Hypertension Status: Chronic Assessment and plan: SEE PLAN OF CARE LISTED BELOW Current Visit: Yes (3) Dyslipidemia Status: Chronic Assessment and plan: SEE PLAN OF CARE LISTED BELOW Current Visit: Yes (4) History of TIA (transient ischemic attack) Status: Chronic Assessment and plan: SEE PLAN OF CARE LISTED BELOW Current Visit: Yes (5) Hypokalemia Status: Resolved Assessment and plan: SEE PLAN OF CARE LISTED BELOW Current Visit: Yes (6) Diabetes Status: Chronic Assessment and plan: SEE PLAN OF CARE LISTED BELOW Current Visit: Yes (7) DENY (obstructive sleep apnea) Status: Chronic Assessment and plan: SEE PLAN OF CARE LISTED BELOW Current Visit: Yes (8) Bradycardia Status: Chronic Assessment and plan: SEE PLAN OF CARE LISTED BELOW Current Visit: Yes (9) Acute on chronic renal failure Status: Resolved Assessment and plan: SEE PLAN OF CARE LISTED BELOW Current Visit: Yes Qualifiers: Chronic kidney disease stage: stage 3 (moderate) (10) Anemia Status: Acute Assessment and plan: SEE PLAN OF CARE LISTED BELOW Current Visit: Yes Cardiology - PN: Subj Interval history: MEDICAL AND SCIENTIFIC ILLUSTRATOR: (NEW) DR. WESLEY PCP: DR. TORRES Mr. Leach, 71WM, admitted September 19, 2016 with complaints of chest pain, shortness of breath for the past several months, gradually worsened over the 2 days prior to admission. No prior history of known heart disease but does have a history of TIAs, hypertension, dyslipidemia, diabetes and aneurysm, morbid obesity. On admission there was concern about possible congestive heart failure however, echocardiogram revealed EF of 50-55% without significant valvular abnormality. ProBNP 56. He is not in CHF. Creatinine 2.0 on arrival. Renal ultrasound revealed no significant abnormality. KUB unremarkable. Patient is a poor historian. He is on Warfarin, I suspect for treatment of history of TIAs. Patient's chest pain occurs at various times and he is tender in his epigastric area. This is similar to the discomfort he has been concerned with. He did have nausea and vomiting on arrival. This has improved. Patient has untreated sleep apnea. He is mildly anemic and we are awaiting stool for occult blood. Warfarin is being held at this time. Cardiac biomarkers are negative, EKG is abnormal but does not reflect IN. SEPTEMBER 22, 2016: Again, patient is a poor historian. Will request records from Dr. Torres office to further identify the reason he takes warfarin, additional medical information (aneurysm). Consult Sleep Medicine as the patient is agreeable to try different masks as he found that he could not tolerate his mask in years past. Continue to treat UTI. We are awaiting stool for occult blood however as he is still somewhat anemic. There was some concern about bradycardia on admission however, patient was taking Coreg 25 mg orally twice daily at that time. Heart rates have been stable with a few episodes of sinus bradycardia (heart rate in the 50s) primarily during sleep hours. Will continue to hold nettie blocking agents. ARB has been on hold due to history of renal insufficiency which has now improved. Blood pressure is suboptimally controlled and I will add Hydralazine 25 mg orally 3 times daily. Also, will add a proton pump inhibitor today. Patient describes chest pain as intermittent for months, reproducible with palpation in the epigastric area. However, he is a poor historian and may benefit from further cardiac workup once anemia has been addressed given his multiple risk factors. Will further discuss with Dr. Bustos and await additional recommendations. ASSESSMENT/PLAN: 1. CHEST PAIN - chest pain is atypical for cardiac disease. Cardiac biomarkers negative, EKG is abnormal. He does have multiple risk factors for heart disease and may benefit from eventual stress testing versus [facility]. Adding PPI. 2. HYPERTENSION - suboptimally controlled. Adding Hydralazine TID. 3. DYSLIPIDEMIA - LDL 57, at goal 4. ANEMIA - stool for occult blood, anemia profile. 5. UNTREATED SLEEP APNEA - consult sleep medicine 6. HISTORY OF TIA - I suspect this is why is taking Coumadin. Again, awaiting records from Dr. Torres's office. 7. CARDIAC MURMUR - benign per echo 8. HISTORY OF ANEURYSM - possible AAA. Await records from Dr. Torres's office 9. ACUTE RENAL FAILURE - now resolved. Present Stage III now resolved. Avoiding JOJO/ARB at this time. 10. UTI - continue antibiotics. Positive for gram negative rods. 11. OBESITY - dietary counseling prior to discharge. Exam (Progress Note) - Constitutional Vitals: Period Temp Pulse Resp BP Sys/Mane Pulse Ox Last 24 Hr 97.8 F-98.7 F 56-96 16-20 142-197/75-95 97-100 Exam: General: [Appears well with no apparent distress.] [Pleasant and cooperative. ] [Appears comfortable.] HEENT: [PERRL, normocephalic, atraumatic. Mucous membranes moist. No jaundice noted. Conjunctiva moist and clear, sclerae anicteric] Neck: Unable to assess for JVD due to habitus. No thyromegaly or lymphadenopathy noted. No carotid bruit appreciated Cardiac: [Regular rate and rhythm.] [II/ JUN heart best at BUSB. Lungs: [Clear to auscultation without accessory muscle use to assist the respiratory pattern.] Not requiring oxygen Abdomen: Large, round, firm with hypoactive bowel sounds. Tender to touch in the epigastric area. No abdominal bruit or thrill noted. No obvious masses noted. Musculoskeletal: No fluid collection. Decreased range of motion is noted. Extremities: No clubbing, cyanosis noted. [1+ bilateral lower extremity edema noted.] Upper extremity pulses 2+. Lower extremity pulses +. Capillary refill less than 3 seconds. Skin: No unusual lesions or rashes. No skin breakdown appreciated. Neuro: Awake, alert and oriented 3. Moves all extremities well without hemiparesis or paralysis. No essential tremor is appreciated. Result/EKG - Labs CBC & BMP: 09/22/16 04:12 09/22/16 04:12 Lab Results: I have reviewed the past 24 hour labs Labs: Laboratory Results - last 24 hr 09/21/16 09/21/16 09/21/16 10:58 11:03 11:23 WBC 7.6 D RBC 4.14 D Hgb 11.6 L Hct 35.4 L MCV 85.5 L MCH 28 MCHC 32.8 RDW 15.8 Plt Count 213 D MPV 10.5 Neut % (Auto) 62.1 Lymph % (Auto) 29.5 Craig % (Auto) 6.2 Eos % (Auto) 1.4 Baso % (Auto) 0.5 Neut # (Auto) 4.7 Lymph # (Auto) 2.3 Craig # (Auto) 0.5 Eos # (Auto) 0.1 Baso # (Auto) 0.0 Immature Gran % 0.3 Nucleated RBC % 0.0 Immature Gran # 0.02 Nucleated RBCs # 0.00 Immature Plt Fraction 0.0 INR PT Patient/Control Mix Sodium Potassium Chloride Carbon Dioxide Anion Gap BUN Creatinine GFR Calculation BUN/Creatinine Ratio Glucose POC Glucose 155 H Calculated Osmolality Calcium B-Natriuretic Peptide 52 09/21/16 09/21/16 09/22/16 15:22 20:11 04:12 WBC RBC Hgb Hct MCV MCH MCHC RDW Plt Count MPV Neut % (Auto) Lymph % (Auto) Craig % (Auto) Eos % (Auto) Baso % (Auto) Neut # (Auto) Lymph # (Auto) Craig # (Auto) Eos # (Auto) Baso # (Auto) Immature Gran % Nucleated RBC % Immature Gran # Nucleated RBCs # Immature Plt Fraction INR 1.5 PT Patient/Control Mix 16.4 Sodium Potassium Chloride Carbon Dioxide Anion Gap BUN Creatinine GFR Calculation BUN/Creatinine Ratio Glucose POC Glucose 161 H 209 H Calculated Osmolality Calcium B-Natriuretic Peptide 09/22/16 09/22/16 09/22/16 04:12 04:12 07:16 WBC 7.7 RBC 3.81 Hgb 10.6 L Hct 32.8 L MCV 86.1 L MCH 28 MCHC 32.3 RDW 15.9 Plt Count 204 MPV 10.7 Neut % (Auto) 51.8 Lymph % (Auto) 37.3 Craig % (Auto) 8.4 Eos % (Auto) 1.6 Baso % (Auto) 0.5 Neut # (Auto) 4.0 Lymph # (Auto) 2.9 Craig # (Auto) 0.7 Eos # (Auto) 0.1 Baso # (Auto) 0.0 Immature Gran % 0.4 Nucleated RBC % 0.0 Immature Gran # 0.03 Nucleated RBCs # 0.00 Immature Plt Fraction 0.0 INR PT Patient/Control Mix Sodium 142 Potassium 3.8 Chloride 105 Carbon Dioxide 31 Anion Gap 9.8 BUN 18 Creatinine 1.30 GFR Calculation 82 BUN/Creatinine Ratio 13.00 Glucose 95 POC Glucose 123 H Calculated Osmolality 284.1 Calcium 8.3 L B-Natriuretic Peptide - Diagnostic Findings Procedure: Chest x-ray: report reviewed by me, Ultrasound: report reviewed by me - EKG EKG results: interpreted by me EKG shows: sinus rhythm
[2016-09-22] MEDS ORDERED: hydrALAZINE 25 MG TABLET PO SCH (09:44)
[2016-09-22] MEDS: PANTOPRAZOLE 20 MG TABLET PO SCH (11:03)
[2016-09-22] MEDS: CARVEDILOL 6.25 MG TABLET PO SCH ×2 (11:03→21:02)
[2016-09-22] MEDS ORDERED: CIPROFLOXACIN 250 MG TABLET PO SCH (13:30)
--- NOTE | 2016-09-22 13:30 | Hospitalist Progress Note ---
Assessment and Plan (1) Chest pain Status: Acute Assessment and plan: 1)chest pain- abnormal EKG. No chest pain since admission. Dr Bustos to recommend timing of further cards eval. 2)he does not have CHF. 3)DM- HGBA1C 6.3. continue oral glipizide 4)HTN- on hydralazine, coreg restarted, monitor heartrate- earlier there were concerns with heart rate recorded of 50 while asleep which is not concerning. 5)VETO on CKD- IVF stopped yeseterday. Creatinine 1.3, down from 2 6)COPD- no wheezing, on nebs and O2. 7)proteus UTI- urine with large LE and 120 WBC, culture grew 20,000 colonies of PRoteus- may not be true infection. Multi drug resistant- stop ceftriaxone and start cipro and reculture- consider prostatitis. Current Visit: Yes (2) Hypertension Status: Chronic Current Visit: Yes (3) Dyslipidemia Status: Chronic Current Visit: Yes (4) Hypokalemia Status: Resolved Current Visit: Yes (5) Diabetes Status: Chronic Current Visit: Yes (6) DENY (obstructive sleep apnea) Status: Chronic Current Visit: Yes (7) Acute on chronic renal failure Status: Resolved Current Visit: Yes Qualifiers: Chronic kidney disease stage: stage 3 (moderate) (8) Anemia Status: Acute Current Visit: Yes (9) COPD (chronic obstructive pulmonary disease) Status: Acute Current Visit: Yes Hospitalist: Subjective Interval history: Mr Leach has no complaints. He is feeling good and anticipates discharge soon. Dr Bustos to see and make recommendation re: timing of cardiac workup. He is eating well. No more chest pain. Exam - Constitutional Vitals: Period Temp Pulse Resp BP Sys/Mane Pulse Ox Last 24 Hr 97.8 F-98.7 F 56-96 16-20 137-197/76-95 97-100 General appearance: no acute distress, morbidly obese - Head Head exam: Present: normocephalic, atraumatic - Eye Eye exam: Present: EOMI. Absent: scleral icterus - Respiratory Respiratory exam: Present: clear to auscultation bilaterally - Cardiovascular Cardiovascular exam: Present: regular rate and rhythm - GI/Abdominal GI/Abdominal exam: Present: normal bowel sounds, soft. Absent: tenderness - Extremities Exam Extremities exam: Absent: edema Results - Labs CBC & BMP: 09/22/16 04:12 09/22/16 04:12 Lab Results: I have reviewed the past 24 hour labs Specialty Discharge - Follow Up or Referrals
[2016-09-22 15:07] LABS: Apearance,Urine CLEAR (Clear); Bacteria,Urine Occasional /HPF (Few); Bilirubin,Urine Negative (Negative); Blood, Urine Negative (Negative); Glucose,Urine (UA) Negative (Negative); Ketones,Urine Negative (Negative); Nitrite,Urine Negative (Negative); Protein,Urine Negative; RBC,Urine 6 /HPF (0-4); Squamous Epithelial Cell,Urine Occasional /HPF (0-10); Urine Color Yellow (Yellow); Urine Specific Gravity 1.018 (1.001-1.035); Urine Urobilinogen < 2.0 EU/DL (0.2-1.0); WBC,Urine 5 /HPF (0-6)
[2016-09-22] MEDS: ASPIRIN EC 81 MG TABLET PO SCH (17:10)
--- NOTE | 2016-09-22 17:43 | Sleep Medicine Consult ---
Assessment and Plan (1) DENY (obstructive sleep apnea) Status: Chronic Assessment and plan: This patient has severe obstructive sleep apnea by history and needs to be reevaluated and likely treated. Suspect that he still has significant severe sleep apnea. We first need to work on mask fit and acclamation to CPAP. I will have sleep takes check on him tomorrow prior to discharge. We may be able to arrange a Pap nap for him to help him acclimate. He will need formal re- titration at some point. We will follow-up with him in the [facility]. Thank you for this consult. Current Visit: Yes (2) Hypertension Status: Chronic Assessment and plan: The prevalence rate for obstructive sleep apnea patients with hypertension is 35 %. That rate can be as high as 80% in patients who require 4 or more medications for blood pressure control. Current Visit: Yes (3) Diabetes Status: Chronic Assessment and plan: The prevalence rate for obstructive sleep apnea in patients with type 2 diabetes can be as high as 86%. Those patients with moderate to severe obstructive sleep apnea are at a greater risk for diabetic nephropathy and neuropathy. Compliance with CPAP therapy for these patients can lead to improvement in glycemic control and improvement in insulin sensitivity. Current Visit: Yes History of Present Illness Chief complaint: Sleep apnea History of present illness: Mr. Leach is a 71 year old male known to me from previous sleep evaluation several years ago. 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 He had a diagnostic AHI of 85.9 and had poor results with CPAP titration. It was recommended that he undergo BiPAP titration. He did get a device but poorly tolerated treatment due to mask discomfort and did not follow-up. He continues to have poor sleep quality with snoring and abnormal breathing during sleep and nocturia. His sleep is unrefreshing. He has a stop bang score of 7 and an [place] sleepiness score of [place]. He is admitted with chest pain and has significant health issues of hypertension and type 2 diabetes. Home Medications Medication Instructions Recorded Confirmed Type Atorvastatin Calcium 20 mg PO BEDTIME 09/19/16 09/19/16 History Carvedilol [Coreg] 25 mg PO BID 09/19/16 09/19/16 History Finasteride [Proscar] 5 mg PO BEDTIME 09/19/16 09/19/16 History Furosemide Tab [Lasix Tab] 80 mg PO DAILY 09/19/16 09/19/16 History Losartan Potassium [Cozaar] 100 mg PO DAILY 09/19/16 09/19/16 History Magnesium 250 mg PO QAM 09/19/16 09/19/16 History Metformin HCl 500 mg PO BID 09/19/16 09/19/16 History Omeprazole [Prilosec] 20 mg PO DAILY 09/19/16 09/19/16 History Potassium Chloride 20 mg PO BID 09/19/16 09/19/16 History Ranolazine [Ranexa] 500 mg PO BID 09/19/16 09/19/16 History Tamsulosin [Flomax] 0.4 mg PO BEDTIME 09/19/16 09/19/16 History Warfarin [Coumadin] 4 mg PO TUTHSA 09/19/16 09/19/16 History Warfarin [Coumadin] 6 mg PO SUMOWEFR 09/19/16 09/19/16 History amLODIPine [Norvasc] 10 mg PO DAILY 09/19/16 09/19/16 History cloNIDine HCl [Clonidine HCl] 0.1 mg PO BID 09/19/16 09/19/16 History glipiZIDE [Glipizide] 10 mg PO BID 09/19/16 09/19/16 History Allergies Allergy/AdvReac Type Severity Reaction Status Date / Time No Known Allergies Allergy Unverified 09/19/16 15:10 Review of systems: Otherwise unremarkable from a sleep medicine standpoint Exam (Pulmonay) H&P - Constitutional Vitals: Period Temp Pulse Resp BP Sys/Mane Pulse Ox Last 24 Hr 97.8 F-98.7 F 58-96 16-20 137-197/76-95 96-100 Exam: He is alert and responsive in no acute distress. Pupils equal round reactive to light and accommodation. Extraocular movements intact. Oropharynx with a class III Mallampati exam. Neck is supple without adenopathy or thyromegaly. No supraclavicular adenopathy is noted. Chest with symmetrical breath sounds without focal wheeze, rhonchi, or rales. Cardiac exam reveals a regular rhythm without murmur or gallop. Abdomen obese nontender without palpable hepatosplenomegaly or mass. Extremities are without significant clubbing or edema. Neurologically, he is grossly intact. He moves all extremities with good strength. Medical,Surgical,& Family Hx - Medical History Cardio: History of: CHF, Hypertension Neurology: History of: TIA Endocrine: History of: Diabetes Mellitus (NIDDM), Dyslipidemia Gastrointestinal: History of: GERD - Surgical History Cardiac Surgeries: Sugical HX of: Cardiac Catheterization (results are unknown) Neurologic Surgeries: Patient denies: Neurologic Surgery Abdominal Surgeries: Surgical HX of: Abdominal Surgery, Cholecystectomy, Hernia Repair Reproductive Surgeries: Patient denies;: Genitourinary Surgery - Family History Family History: Reports;: Family Heart Disease - Social History Smoking Status: Never smoker Frequency of Alcohol Use: None Type of Drug Use: None Results - Labs CBC & BMP: 09/22/16 04:12 09/22/16 04:12 Lab Results: I have reviewed the past 24 hour labs Specialty Discharge - Follow Up or Referrals Follow up with: Ben Skinner MD [Physician] - (Needs outpatient stress test scheduled and followup with Dr. Skinner. )
[2016-09-22] MEDS ORDERED: WARFARIN 7.5 MG TABLET PO SCH (18:00)
[2016-09-22] MEDS: FINASTERIDE 5 MG TABLET PO SCH (21:02)
[2016-09-22] MEDS: ATORVASTATIN 20 MG TABLET PO SCH (21:02)
[2016-09-22] MEDS: TAMSULOSIN 0.4 MG CAPSULE PO SCH (21:02)
[2016-09-23] MEDS ORDERED: CIPROFLOXACIN 250 MG TABLET PO SCH (02:00)
[2016-09-23] MEDS: ALBUTEROL/IPRATROPIUM 3 ML NEB RESP TX SCH ×3 (03:20→10:29)
[2016-09-23 06:00] LABS: Basophils % 0.4 % (0.0-0.8); Eosinophils # 0.1 10*3/uL (0.0-0.87); Eosinophils % 1.9 % (0.00-10.9); Hematocrit 32.7 VOL% (42.0-52.0); Hemoglobin 10.7 GM/DL (14.0-18.0); Immature Granulocytes % 0.3 %; Immature Granulocytes Absolute 0.02 #; Lymphocytes # 2.7 10*3/uL (1.4-4.0); Lymphocytes % 36.7 % (21.2-54.2); Mean Corpuscular HGB Conc 32.7 GM/DL (32-36); Mean Corpuscular Hemoglobin 28 PG (27-34); Mean Corpuscular Volume 85.4 FL (87-102); Mean Platelet Volume 10.4 FL (9.6-12.0); Monocytes # 0.6 10*3/uL (0.11-0.8); Monocytes % 7.5 % (1.7-12.7); Neutrophils % 53.2 % (38.7-73.9); Platelet Count 202 T/CUMM (130-400); Red Blood Count 3.83 MC/CUMM (3.8-5.5); White Blood Count 7.4 T/CUMM (4-12)
[2016-09-23 06:10] LABS: INR 1.5; PT Patient Result 16.5 SECS
[2016-09-23 06:36] LABS: Calcium 8.5 MG/DL (8.5-10.1); Calcium 8.6 MG/DL (8.5-10.1); Magnesium 1.9 MG/DL (1.8-2.4); Osmolality,Calculated 283.3 MOS/KG (273-304); Osmolality,Calculated 284.3 MOS/KG (273-304); Potassium 3.7 MMOL/L (3.5-5.1)
--- NOTE | 2016-09-23 07:38 | Discharge Summary ---
<Marilin Galvez - Last Filed: 09/23/16 08:21> Hospital Course - Hospital Course Hospital Course: Mr Vyas with PMHx of GERD, hypertension, CHF, TIA, diabetes, dyslipidemia, and BPH; presented to the ED for c/o chest pain. Labs obtained in the ED H&H 11.2 & 33.6; K 3.2, BUN 32 and Creatinine 2.0. Troponin negative; BNP 56. CXR Showed no acute changes. KUB no acute abnormalities. He was admitted on 09/19/16 to Hospitalist Services for further evaluation. It was noted that all follow up Troponins were negative and EKG without significant changes. Cardiology was consulted. ECHO was completed and showed:IMPRESSIONS Normal left ventricular cavity size. Moderate concentric left ventricular hypertrophy with diastolic dysfunction. Left ventricular ejection fraction is estimated at 50-55 %. Normal right ventricular size. Normal right atrial size. Normal left atrial size. Mildly thickened mitral valve with mild mitral regurgitation. Aortic valve sclerosis without stenosis or regurgitation. Aortic valve area is 1.3 cm. Aortic valve mean gradient is 15 mmHg. Morphologically normal tricuspid valve. Trace tricuspid valve regurgitation. Morphologically normal pulmonic valve. No pericardial effusion. Normal size aortic root and proximal ascending aorta. Cardiology feels chest pain was noncardiac in nature. They feel he needs to have outpatient stress test and follow up with Dr Skinner. Dr Rousseau plans to follow-up with him in the [facility] for his sleep apnea. He has had no more chest pain since admission. He is eating well. No wheezing. He does have a UTI; culture was positive for Proteus vulgaris and was started on Cipro for recommended sensitivity treatment. 09/23/16 Patient has had no more chest pain since admission. He is feeling much better. He will be discharged home today. He will need to followup with Dr Skinner. He will need to continue Cipro by mouth for UTI coverage. Will need to followup with Dr Rousseau for sleep apnea. I have seen and examined MR Leach and agree with the summary above form Marilin Galvez NP. In addition his Cipro is for suspected prostatitis. He has an appointment with his urologist soon. In total 35 minutes were spent on this discharge for documentation, exam, medicine reconciliation, discharge planning. Specialty Discharge - Follow Up or Referrals Follow up with: your, PCP [Other] - 1 Week (complete work up for TIAs, monitor HTN, sleep apnea , obesity, chest pain) Dayana Rousseau MD [Physician] - 10/14/16 7:15 pm Ben Skinner MD [Physician] - 10/06/16 8:00 am (Brody will need to see pt first before outpatient stress test can be ordered since pt is new to . ) Discharge Plan - Discharge Data Disposition: Disch To Home/Self Care - Discharge Medications New Carvedilol [Coreg] 6.25 mg PO BID #60 tablet Ciprofloxacin Tab [Cipro Tab] 250 mg PO Q12H #20 tablet hydrALAZINE TAB [Apresoline Tab] 100 mg PO TID #90 tablet Aspirin EC Tab 81 mg PO DAILY tablet Continue Furosemide Tab [Lasix Tab] 80 mg PO DAILY glipiZIDE [Glipizide] 10 mg PO BID Metformin HCl 500 mg PO BID Omeprazole [Prilosec] 20 mg PO DAILY Potassium Chloride 20 mg PO BID Tamsulosin [Flomax] 0.4 mg PO BEDTIME Warfarin [Coumadin] 6 mg PO SUMOWEFR Warfarin [Coumadin] 4 mg PO TUTHSA amLODIPine [Norvasc] 10 mg PO DAILY Atorvastatin Calcium 20 mg PO BEDTIME Finasteride [Proscar] 5 mg PO BEDTIME Magnesium 250 mg PO QAM Discontinued Carvedilol [Coreg] 25 mg PO BID cloNIDine HCl [Clonidine HCl] 0.1 mg PO BID Losartan Potassium [Cozaar] 100 mg PO DAILY Ranolazine [Ranexa] 500 mg PO BID - Follow Up or Referral Follow Up: your, PCP [Other] - 1 Week (complete work up for TIAs, monitor HTN, sleep apnea , obesity, chest pain) Dayana Rousseau MD [Physician] - 10/14/16 7:15 pm Ben Skinner MD [Physician] - 10/06/16 8:00 am ([facility] will need to see pt first before outpatient stress test can be ordered since pt is new to . ) - Forms/Instructions Instructions: Warfarin (By mouth) Exam - Constitutional Vitals: Period Temp Pulse Resp BP Sys/Mane Pulse Ox Last 24 Hr 97.7 F-98.5 F 60-72 16-20 137-171/72-99 96-99 Discharge Results Procedures and tests throughout hospitalization: Pending Orders 09/21/16 04:00 Occult Blood, Stool 09/22/16 04:00 Occult Blood, Stool 09/22/16 09:26 Occult Blood, Stool Stat 09/24/16 04:00 BMP w/ Mg [Basic Metabolic Panel w/Mg] IN AM CBC [Comp Blood Count Auto Diff] IN AM Prothrombin Time INR IN AM 09/25/16 04:00 BMP w/ Mg [Basic Metabolic Panel w/Mg] IN AM 09/26/16 04:00 BMP w/ Mg [Basic Metabolic Panel w/Mg] IN AM Labs on day of discharge: Labs from last 24 hours 09/23/16 09/23/16 09/23/16 07:59 05:36 05:36 WBC 7.4 RBC 3.83 Hgb 10.7 L Hct 32.7 L MCV 85.4 L MCH 28 MCHC 32.7 RDW 16.0 Plt Count 202 MPV 10.4 Neut % (Auto) 53.2 Lymph % (Auto) 36.7 Arroyo % (Auto) 7.5 Eos % (Auto) 1.9 Baso % (Auto) 0.4 Neut # (Auto) 4.0 Lymph # (Auto) 2.7 Arroyo # (Auto) 0.6 Eos # (Auto) 0.1 Baso # (Auto) 0.0 Immature Gran % 0.3 Nucleated RBC % 0.0 Immature Gran # 0.02 Nucleated RBCs # 0.00 Immature Plt Fraction 0.0 INR PT Patient/Control Mix Sodium 141 Potassium 3.7 Chloride 106 Carbon Dioxide 28 Anion Gap 10.7 BUN 19 H Creatinine 1.20 GFR Calculation 91 BUN/Creatinine Ratio 15.00 Glucose 113 H POC Glucose 135 H Calculated Osmolality 283.3 Calcium 8.6 Magnesium 1.9 Urine Color Urine Appearance Urine pH Ur Specific Hamilton Urine Protein Urine Glucose (UA) Urine Ketones Urine Blood Urine Nitrate Urine Bilirubin Urine Urobilinogen Urine Leukocytes Urine RBC Urine WBC Ur Squamous Epith Cells Urine Bacteria Ur Culture Indicated? 09/23/16 09/23/16 09/22/16 05:36 05:36 21:14 WBC RBC Hgb Hct MCV MCH MCHC RDW Plt Count MPV Neut % (Auto) Lymph % (Auto) Arroyo % (Auto) Eos % (Auto) Baso % (Auto) Neut # (Auto) Lymph # (Auto) Arroyo # (Auto) Eos # (Auto) Baso # (Auto) Immature Gran % Nucleated RBC % Immature Gran # Nucleated RBCs # Immature Plt Fraction INR 1.5 PT Patient/Control Mix 16.5 Sodium 141 Potassium 3.7 Chloride 106 Carbon Dioxide 27 Anion Gap 11.7 BUN 20 H Creatinine 1.10 GFR Calculation 101 BUN/Creatinine Ratio 18.00 Glucose 112 H POC Glucose 133 H Calculated Osmolality 284.3 Calcium 8.5 Magnesium Urine Color Urine Appearance Urine pH Ur Specific Hamilton Urine Protein Urine Glucose (UA) Urine Ketones Urine Blood Urine Nitrate Urine Bilirubin Urine Urobilinogen Urine Leukocytes Urine RBC Urine WBC Ur Squamous Epith Cells Urine Bacteria Ur Culture Indicated? 09/22/16 09/22/16 09/22/16 15:42 14:37 11:40 WBC RBC Hgb Hct MCV MCH MCHC RDW Plt Count MPV Neut % (Auto) Lymph % (Auto) Arroyo % (Auto) Eos % (Auto) Baso % (Auto) Neut # (Auto) Lymph # (Auto) Arroyo # (Auto) Eos # (Auto) Baso # (Auto) Immature Gran % Nucleated RBC % Immature Gran # Nucleated RBCs # Immature Plt Fraction INR PT Patient/Control Mix Sodium Potassium Chloride Carbon Dioxide Anion Gap BUN Creatinine GFR Calculation BUN/Creatinine Ratio Glucose POC Glucose 136 H 177 H Calculated Osmolality Calcium Magnesium Urine Color Yellow Urine Appearance Clear Urine pH 6.0 Ur Specific Hamilton 1.018 Urine Protein Negative Urine Glucose (UA) Negative Urine Ketones Negative Urine Blood Negative Urine Nitrate Negative Urine Bilirubin Negative Urine Urobilinogen < 2.0 H Urine Leukocytes Trace Urine RBC 6 Urine WBC 5 Ur Squamous Epith Cells Occasional Urine Bacteria Occasional Ur Culture Indicated? Not indicated DS: Provider Date of admission: 09/20/16 10:35 Primary care physician: . No PCP Attending physician on admission: Patricia Garcia MD Consults: 09/19/16 20:01 Consult to Physician [CONS] Routine Comment: chest pain Consulting Provider: Pricila Neri When should Consulting Provider be notified: Now Consult to Sleep Center [CONS] Routine Reason for Sleep Center: Sleep Center Physician Consult Comment: deny 09/20/16 14:37 Consult to Pharmacy [CONS] Routine Reason for Pharmacy Consult: Other Comment: coumadin dosing 09/21/16 09:31 Consult to Case Mgmt/Social Srvs [CONS] Routine Reason for Case Mgmt/Social Srvs: Equipment Home Health Consult Comment: financial constraints needs cpap machine Discharging clinician: Marilin Galvez NP <Faith Perez - Last Filed: 09/23/16 13:50> Hospital Course - Time spent with patient Time with patient DS: Greater than 30 minutes Diagnosis - Discharge Diagnosis (1) Chest pain Status: Resolved (2) Hypertension Status: Chronic (3) Dyslipidemia Status: Chronic (4) Diabetes Status: Chronic (5) DENY (obstructive sleep apnea) Status: Chronic (6) Anemia Status: Chronic (7) COPD (chronic obstructive pulmonary disease) Status: Chronic Discharge Plan - Discharge Data Condition at Discharge: Stable Discharge Diet: diabetic diet, heart healthy Activity: resume usual activities as tolerated Exam - Constitutional General appearance: no acute distress, morbidly obese - Head Head exam: Present: normocephalic, atraumatic - Eye Eye exam: Present: EOMI. Absent: scleral icterus - Respiratory Respiratory exam: Present: clear to auscultation bilaterally - Cardiovascular Cardiovascular exam: Present: regular rate and rhythm - GI/Abdominal GI/Abdominal exam: Present: normal bowel sounds, soft. Absent: tenderness - Extremities Exam Extremities exam: Absent: edema
[2016-09-23 08:11] VITALS: BP 168/96
[2016-09-23] MEDS: ASPIRIN EC 81 MG TABLET PO SCH (08:43)
[2016-09-23] MEDS: CARVEDILOL 6.25 MG TABLET PO SCH (08:43)
[2016-09-23] MEDS: LACTULOSE 20 GM/30 ML UDCUP PO SCH (08:43)
[2016-09-23] MEDS: PANTOPRAZOLE 20 MG TABLET PO SCH (08:44)
[2016-09-23] MEDS: glipiZIDE 10 MG TABLET PO SCH (08:44)
[2016-09-23] MEDS: amLODIPine 10 MG TABLET PO SCH (08:44)
[2016-09-23] MEDS: INSULIN LISPRO 100 UNIT/ML SUBCUT SCH (08:46)
[2016-09-23] MEDS ORDERED: WARFARIN 3 MG TABLET PO SCH (18:00)
--- NOTE | 2016-10-01 07:55 | Physician Query Form ---
CLICK EDIT DOCUMENT TO SELECT QUERY ANSWER --> OK --> SIGN Gabriela Santos RN Clinical Urology Physician W) [phone] (f) [phone] [email or web address] PROVIDERS: Make your selection(s) from the choices in EACH section by typing an "x" and enter comments in the comment section. Please use your independent medical judgment in providing your response. This request does not imply that any particular answer is desired or expected. CLINICAL INDICATORS: (Providers should not edit this section) Based on conflicting documentation of " Acute diastolic CHF" and "BNP is 45. For that reason i do not think he is in acute heart failure" BNP as high as 56. shows an EF of 50-55% with aortic sclerosis and diastolic dysfunction. Patient has a history of CHF. Please provide further specificity regarding CHF. ACUITY: ( ) Acute ( ) Chronic ( ) Acute on Chronic ( ) Clinically unable to determine TYPE: ( ) Systolic (HFrEF - heart failure with reduced systolic function/EF) ( ) Diastolic (HFpEF - heart failure with preserved systolic function/EF) ( ) Combined Systolic/Diastolic ( ) Other, please specify: ( ) Clinically unable to determine ( ) Past Medical History of Systolic CHF (x ) Past Medical History of Diastolic CHF ( ) Clinically unable to determine COMMENTS: PLEASE ALSO DOCUMENT RESPONSE IN PROGRESS NOTES AND/OR DISCHARGE SUMMARY Use of terms such as suspected, likely, or probable (associated with a specific diagnosis that is being evaluated, monitored, or treated as if it exists) are acceptable and can be restated in the discharge summary if not ruled out. MTDD
== END 2016-09-23 11:00 | disposition home or self-care (01) | DRG 313 ==
LOC: N.EDINP 15:02 → N.ED 15:02 → N.TELES 19:34 → N.ICU 09-20 10:37 → SUATTDRO 09-20 10:38 → N.TELES 09-20 11:01
PROVIDERS: ADMIT Internal Medicine; ATTEND Internal Medicine

== ENCOUNTER 2016-11-13 18:54 | Inpatient (IN) ==
[2016-11-13] MEDS ORDERED: ONDANSETRON 4 MG/2 ML VIAL IV STA (20:21)
[2016-11-13] MEDS ORDERED: METOPROLOL TARTRATE 25 MG TABLET PO STA (20:21)
[2016-11-13] MEDS ORDERED: ASPIRIN 325 MG TABLET PO STA (20:21)
[2016-11-13] MEDS ORDERED: ALBUTEROL/IPRATROPIUM 3 ML NEB RESP TX STA (20:21)
[2016-11-13] MEDS ORDERED: NITROGLYCERIN 2% OINT 1 INCH/GM PACK TOP STA (20:21)
[2016-11-13] MEDS ORDERED: MORPHINE 2 MG/1 ML SYRINGE IV STA (20:21)
[2016-11-13] MEDS ORDERED: FUROSEMIDE 40 MG/4 ML VIAL IV STA (20:21)
[2016-11-13] MEDS ORDERED: ALUM/MAG/SIMETH/LIDO VISC 1:1 30 ML BOTTLE PO STA (20:21)
[2016-11-13] MEDS ORDERED: NITROGLYCERIN 2% OINT 1 INCH/GM PACK TOP ONE (20:38)
[2016-11-13] MEDS ORDERED: FUROSEMIDE 20 MG/2 ML VIAL ONE (20:39)
[2016-11-13] MEDS ORDERED: ALUM/MAG/SIMETH/LIDO VISC 1:1 30 ML BOTTLE PO ONE (20:39)
[2016-11-13] MEDS ORDERED: ASPIRIN 325 MG TABLET ONE (20:39)
[2016-11-13] MEDS ORDERED: MORPHINE 2 MG/1 ML SYRINGE ONE (20:39)
[2016-11-13] MEDS ORDERED: ONDANSETRON 4 MG/2 ML VIAL ONE (20:39)
[2016-11-13] MEDS ORDERED: FUROSEMIDE 40 MG/4 ML VIAL ONE (20:39)
[2016-11-13 20:45] LABS: Alanine Aminotransferase 43 U/L (16-61); Albumin 3.5 G/DL (3.4-5.0); Alkaline Phosphatase 60 U/L (45-117); Aspartate Amino Transferase 24 U/L (0-37); Bilirubin,Total < 0.39 MG/DL (0.2-1.0); Blood Urea Nitrogen 23 MG/DL (7-18); Calcium 8.9 MG/DL (8.5-10.1); Glucose 102 MG/DL (74-106); Magnesium 2.2 MG/DL (1.8-2.4); Osmolality,Calculated 289.8 MOS/KG (273-304); Potassium 3.4 MMOL/L (3.5-5.1); Sodium 144 MMOL/L (136-145); Total Protein 6.7 G/DL (6.4-8.3)
[2016-11-13 20:48] LABS: Basophils # 0.1 10*3/uL (0.0-0.2); Basophils % 0.7 % (0.0-0.8); Eosinophils # 0.1 10*3/uL (0.0-0.87); Eosinophils % 1.1 % (0.00-10.9); Hemoglobin 11.2 GM/DL (14.0-18.0); Immature Granulocytes % 0.2 %; Immature Granulocytes Absolute 0.02 #; Lymphocytes # 3.2 10*3/uL (1.4-4.0); Lymphocytes % 35.8 % (21.2-54.2); Mean Corpuscular Hemoglobin 27 PG (27-34); Mean Platelet Volume 10.8 FL (9.6-12.0); Monocytes # 0.7 10*3/uL (0.11-0.8); Monocytes % 8.2 % (1.7-12.7); Neutrophils # 4.8 10*3/uL (1.4-7.4); Platelet Count 239 T/CUMM (130-400); Red Blood Count 4.12 MC/CUMM (3.8-5.5); Red Cell Distribution Width 15.5 % (9.3-17.3); White Blood Count 8.8 T/CUMM (4-12)
--- NOTE | 2016-11-13 20:51 | XRay Report ---
Portable chest Exam date: 11/13/2016 8:22 PM Indication: Shortness of breath, cough Comparison: October 06, 2016 Findings: Cardiomediastinal contours are stable. Left basilar atelectasis/scarring is stable. No acute osseous abnormalities. Visualized upper abdomen demonstrates no acute pathology. Impression: No acute cardiopulmonary findings PROCEDURE INTERPRETED AT [facility] DEPARTMENT OF RADIOLOGY Final Report Signed by: Aiden Owusu MD
[2016-11-13] MEDS ORDERED: POTASSIUM CHLORIDE 20 MEQ TABLET PO STA (21:01)
--- NOTE | 2016-11-13 21:05 | Emergency Department Note ---
Joseph Germain Brittany, am scribing for, and in the presence of, Mack Hsu MD 19:55. Shadi Germain Charles R, MD, personally performed the services described in this documentation, ascribed by Renata Ruiz in my presence, and it is both accurate and complete . Arrival - Arrival Chief Complaint: Chest Pain Stated Complaint: CHEST PAIN ED Nursing Triage Note: Patient to triage with c/o chest pain that is located over the left side of his chest, nonreproducible, dull pain that does not radiate. Patient also having CANDELARIA and some SOB when he lays flat. PMH of CHF. Patient states his BP has been high despite taking his mediations and that he has a appointment with his hospitalist program director next week. EKG obtained in triage. Mode of Arrival: Ambulatory Limitations: No Limitations Source: Patient Time Seen by Provider: 11/13/16 19:36 - History of Present Illness HPI Narrative: This is a 71 y/o white obese male,who presents to the ED with c/o CP which started earlier today. He states the chest pain sometimes moves into his left neck. He notes CANDELARIA and SOB. He states his PCP is Dr. Cheng. Pt also complains of uncontrolled BP. He notes he does not eat a high Sodium diet. Pt has no other complaints/pain in the ED at this time. Pt has a PMHx of NIDDM, TIA, CHF, HTN, dyslipidemia, COPD, and GERD. Pt has had a cardiac cath, abdominal surgery , hernia repair, and cholecystectomy. Pt has a family medical hx of heart disease. Pt denies a social Hx. Onset (ago): hour(s) (Started ealier today) Consistency: constant Severity: moderate Allergies/Adverse Reactions: Allergies Allergy/AdvReac Type Severity Reaction Status Date / Time No Known Allergies Allergy Verified 11/13/16 19:13 Home Medications: Home Medications Medication Instructions Recorded Confirmed Type Finasteride [Proscar] 5 mg PO BEDTIME 09/19/16 11/13/16 History Furosemide Tab [Lasix Tab] 80 mg PO QAM 09/19/16 11/13/16 History Magnesium 250 mg PO QAM 09/19/16 11/13/16 History Omeprazole [Prilosec] 20 mg PO QAM 09/19/16 11/13/16 History Tamsulosin [Flomax] 0.4 mg PO BEDTIME 09/19/16 11/13/16 History Warfarin [Coumadin] 4 mg PO SA 09/19/16 11/13/16 History Warfarin [Coumadin] 6 mg PO SUMOTUWETHFR 09/19/16 11/13/16 History glipiZIDE [Glipizide] 10 mg PO BID 09/19/16 11/13/16 History Carvedilol [Coreg] 6.25 mg PO BID #60 tablet 09/23/16 11/13/16 Rx Aspirin EC Tab 81 mg PO QAM 10/02/16 11/13/16 History Atorvastatin Calcium 40 mg PO BEDTIME 10/02/16 11/13/16 History Cholecalciferol (Vitamin D3) 2,000 unit PO QAM 10/02/16 11/13/16 History [Vitamin D3] Isosorbide Dinitrate [Isordil] 20 mg PO TID #90 tablet 10/06/16 11/13/16 Rx Montelukast Tab [Singulair Tab] 10 mg PO BID #60 tablet 10/06/16 11/13/16 Rx hydrALAZINE TAB [Apresoline Tab] 50 mg PO TID #90 tablet 10/06/16 11/13/16 Rx Docusate Sodium 100 mg PO DAILY PRN 11/13/16 11/13/16 History Spironolactone [Aldactone] 25 mg PO BID 11/13/16 11/13/16 History Medical,Surgical,& Family Hx - Medical History Cardio: History of: CHF, Hypertension No history of: CAD, [place] Neurology: History of: TIA Endocrine: History of: Diabetes Mellitus (NIDDM), Dyslipidemia Respiratory: History of: COPD Gastrointestinal: History of: GERD - Surgical History Cardiac Surgeries: Sugical HX of: Cardiac Catheterization Neurologic Surgeries: Patient denies: Neurologic Surgery Abdominal Surgeries: Surgical HX of: Abdominal Surgery, Cholecystectomy, Hernia Repair Reproductive Surgeries: Patient denies;: Genitourinary Surgery - Family History Family History: Reports;: Family Heart Disease - Social History Smoking Status: Never smoker Frequency of Alcohol Use: None Type of Drug Use: None Exam Vital Signs: Vital Signs Temperature 97.6 F 11/13/16 19:09 Pulse Rate 66 11/13/16 19:09 Respiratory Rate 18 11/13/16 19:09 Blood Pressure 232/121 11/13/16 19:09 O2 Sat by Pulse Oximetry 96 11/13/16 19:09 - General General appearance: alert, in no apparent distress, obese - Head Head exam: Present: normal inspection - Eye Eye exam: Present: PERRL, EOMI. Absent: nystagmus - Neck Neck exam: Present: full ROM. Absent: tenderness - Chest Chest inspection: Present: symmetric chest wall rise. Absent: tenderness - Respiratory Respiratory exam: Present: rales (Rales noted to the base ) - Cardiovascular Cardiovascular exam: Present: regular rate, normal rhythm, normal heart sounds. Absent: murmur, rubs, gallop, clicks, JVD - Abdominal Exam Abdominal exam: Present: soft, normal bowel sounds, other (Bloated). Absent: tenderness - Rectal Exam Rectal exam: Present: deferred - Extremities Exam Extremities exam: Present: normal capillary refill, pedal edema (+1 pitting edema bilaterally) - Back Exam Back exam: Present: normal inspection, full ROM. Absent: tenderness, muscle spasm, rashes - Neurological Exam Neurological exam: Present: alert, oriented X3, CN II-XII intact. Absent: motor sensory deficit - Psychiatric Psychiatric exam: Present: normal affect, normal mood. Absent: depressed, agitated, anxious, flat affect, manic - Skin Skin exam: Present: warm, dry, intact, normal color. Absent: rash, cyanosis, diaphoresis Course - Consultations Consultation #1: Hospitalist will admit patient Time: 21:04 Results - Labs CBC & BMP: 11/13/16 19:55 11/13/16 19:55 Lab Results: I have reviewed the patients labs Disposition Clinical Impression: Chest pain, Acute dyspnea, Obesity, Sleep apnea, History of TIA (transient ischemic attack), Diastolic heart failure, Bradycardia, Hypertensive urgency Case discussed with: patient Disposition: Still a Patient Condition: Stable Time of Disposition: 21:05
[2016-11-13 21:15] LABS: PT Patient Result 21.5 SECS
[2016-11-13] MEDS ORDERED: POTASSIUM CHLORIDE 20 MEQ TABLET PO ONE (21:36)
[2016-11-13] MEDS ORDERED: METOPROLOL TARTRATE 25 MG TABLET ONE (21:40)
[2016-11-13] MEDS ORDERED: hydrALAZINE 20 MG/1 ML VIAL IV STA (21:46)
[2016-11-13] MEDS ORDERED: hydrALAZINE 20 MG/1 ML VIAL ONE (21:57)
--- NOTE | 2016-11-13 23:05 | Hospitalist History & Physical ---
Assessment and Plan (1) Chest pain Status: Acute Assessment and plan: We will perform serial troponins and EKGs We will consult cardiology We will place patient on telemetry bed We will give Lasix 80 mg IV twice daily Current Visit: Yes (2) Obesity Status: Chronic Current Visit: No (3) Diabetes Status: Chronic Assessment and plan: We will continue home medications and perform Accu-Cheks every 6 Current Visit: No (4) Hypertension Status: Chronic Assessment and plan: We will continue home medications We will give nitroglycerin 0.5 inch topical Patient current blood pressure 190/104 Current Visit: No (5) Hypokalemia Status: Acute Assessment and plan: We will replace as needed Labs in a.m. Current Visit: Yes History of Present Illness Chief complaint: chest pain History of present illness: Called to the ER for Mr. Leach is a 71 year old male that presented to the emergency room complaining of left-sided chest pain that started this a.m. while he was sitting down. Patient describes pain as a dull ache that is constant and has no alleviating or aggravating factors. Patient does have some increased shortness of breath especially on exertion. He does admit to a dry cough. He denies any nausea, vomiting, diarrhea, fevers, or palpitations. 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 He is supposed to follow-up with him next week in clinic. Patient recently had a carotid ultrasound and stress test. His recent echocardiogram was on September 20, 2016 that showed an EF of 50-55% with a trace tricuspid valve regurgitation. Patient is currently taking Lasix 80 mg daily and spironolactone 25 mg twice daily. Patient states that he doubles up on his Lasix. In the past week he takes a total of 160 mg of Lasix either every day or every other day. Patient says the edema on his legs have improved and his breathing has improved. Additional history includes paroxysmal atrial fibrillation which he takes Coumadin for. His INR today is 2.0. Other history includes TIAs, dyslipidemia , hypertension, COPD, GERD, hernia repair, diabetes, cholecystectomy, arthritis , BPH, and DENY. Patient will be admitted to inpatient with a cardiology consult , diuresis, and electrolyte monitoring. His PCP is Dr. Cheng. Patient is a full code. Home Medications Medication Instructions Recorded Confirmed Type Finasteride [Proscar] 5 mg PO BEDTIME 08/04/17 09/28/17 History Furosemide Tab [Lasix Tab] 80 mg PO QAM 09/19/16 11/13/16 History Magnesium 250 mg PO QAM 09/19/16 11/13/16 History Omeprazole [Prilosec] 20 mg PO QAM 09/19/16 11/13/16 History Tamsulosin [Flomax] 0.4 mg PO BEDTIME 09/19/16 11/13/16 History Warfarin [Coumadin] 4 mg PO SA 09/19/16 11/13/16 History Warfarin [Coumadin] 6 mg PO SUMOTUWETHFR 09/19/16 11/13/16 History glipiZIDE [Glipizide] 10 mg PO BID 09/19/16 11/13/16 History Carvedilol [Coreg] 6.25 mg PO BID #60 tablet 09/23/16 11/13/16 Rx Aspirin EC Tab 81 mg PO QAM 10/02/16 11/13/16 History Atorvastatin Calcium 40 mg PO BEDTIME 10/02/16 11/13/16 History Cholecalciferol (Vitamin D3) 2,000 unit PO QAM 10/02/16 11/13/16 History [Vitamin D3] Isosorbide Dinitrate [Isordil] 20 mg PO TID #90 tablet 10/06/16 11/13/16 Rx Montelukast Tab [Singulair Tab] 10 mg PO BID #60 tablet 10/06/16 11/13/16 Rx hydrALAZINE TAB [Apresoline Tab] 50 mg PO TID #90 tablet 10/06/16 11/13/16 Rx Docusate Sodium 100 mg PO DAILY PRN 11/13/16 11/13/16 History Spironolactone [Aldactone] 25 mg PO BID 11/13/16 11/13/16 History Allergies Allergy/AdvReac Type Severity Reaction Status Date / Time No Known Allergies Allergy Verified 11/13/16 19:13 Medical,Surgical,& Family Hx - Medical History Cardio: History of: Cardiac Dysrhythmia (Atrial fibrillation), CHF, Hypertension No history of: CAD, LA, Pacemaker Psychological: No history of: Anxiety Disorders Neurology: History of: Cerebrovascular Accident, TIA HEENT: No history of: Ear Problem, Eye Problem Endocrine: History of: Diabetes Mellitus (NIDDM), Dyslipidemia No history of: Adrenal Disease Respiratory: History of: COPD, Obstructive Sleep Apnea No history of: Pulmonary Embolism, Pulmonary Hypertension Renal: No history of: Renal Problems Genitourinary: No history of: Problems Gastrointestinal: History of: GERD Musculoskeletal: History of: Musculoskeletal Problems (Arthritis) Hematology: No history of: Anemia Reproductive: Reports: Reproductive Problems (BPH) - Surgical History Cardiac Surgeries: Sugical HX of: Cardiac Catheterization Neurologic Surgeries: Patient denies: Neurologic Surgery Abdominal Surgeries: Surgical HX of: Abdominal Surgery, Cholecystectomy, Hernia Repair Reproductive Surgeries: Patient denies;: Genitourinary Surgery - Family History Family History: Reports;: Family Cancer (Motherbreast cancer), Family Heart Disease (Father and brother) - Social History Smoking Status: Never smoker Frequency of Alcohol Use: None Type of Drug Use: None Marital Status: Lives With:: Spouse Functional capacity: independent ambulation - Constitutional Constitutional: Present: fatigue, weight gain. Absent: anorexia, chills, fever( s), frequent falls, headache(s), increased appetite - EENT Eyes: Absent: blurry vision Ears: Absent: decreased hearing Nose, mouth and throat: Absent: hoarseness, sore throat - Cardiovascular Cardiovascular: Present: chest pain at rest, chest pain with activity, dyspnea, dyspnea on exertion, edema. Absent: radiating jaw, neck or arm pain, lightheadedness, palpitations - Respiratory Respiratory: Present: cough, dyspnea. Absent: wheezing - Gastrointestinal Gastrointestinal: Absent: abdominal pain, diarrhea, nausea, vomiting - Genitourinary Genitourinary: Absent: difficulty urinating - Musculoskeletal Musculoskeletal: Absent: muscle weakness - Psychiatric Psychiatric: Absent: anxiety Exam - Constitutional Vitals: Period Temp Pulse Resp BP Sys/Mane Pulse Ox Last 24 Hr 97.6 F-97.6 F 52-66 18-27 232-232/121-121 96-100 General appearance: no acute distress, morbidly obese - Head Head exam: Present: normal inspection, normocephalic - Eye Eye exam: Present: EOMI Pupils: Present: JAJA, normal accommodation - ENT ENT exam: Present: normal exam - Neck Neck exam: Present: normal inspection, lymphadenopathy - Respiratory Respiratory exam: Present: rhonchi (Right lower base. Otherwise clear. Symmetrical rise and fall of chest noted. Respirations even and unlabored.). Absent: accessory muscle use - Cardiovascular Cardiovascular exam: Present: bradycardia (Sinus bradycardia monitor). Absent: diastolic murmur, systolic murmur - GI/Abdominal GI/Abdominal exam: Present: normal bowel sounds, firm, soft. Absent: tenderness - Extremities Exam Extremities exam: Present: normal inspection, normal capillary refill, full ROM , edema (2+ nonpitting edema to bilateral extremities) - Neurological Exam Neurological exam: Present: alert, oriented X3 (Able to answer questions appropriately. Makes good eye contact.) - Psychiatric Psychiatric exam: Present: normal affect - Skin Skin exam: Present: normal color, warm, dry, intact Results - Labs CBC & BMP: 11/13/16 19:55 11/13/16 19:55 Lab Results: I have reviewed the past 24 hour labs
[2016-11-13] MEDS ORDERED: ONDANSETRON 4 MG/2 ML VIAL IV PRN (23:13)
[2016-11-13] MEDS ORDERED: ACETAMINOPHEN 325 MG TABLET PO PRN (23:13)
--- NOTE | 2016-11-13 23:51 | Order Completion Report ---
See report scanned to EMR
[2016-11-14] MEDS: NITROGLYCERIN 2% OINT 1 INCH/GM PACK TOP SCH ×3 (01:18→21:05)
[2016-11-14] MEDS: WARFARIN 3 MG TABLET PO SCH ×3 (01:18→23:44)
[2016-11-14 01:32] LABS: Alanine Aminotransferase 43 U/L (16-61); Albumin 3.7 G/DL (3.4-5.0); Alkaline Phosphatase 62 U/L (45-117); Aspartate Amino Transferase 25 U/L (0-37); Bilirubin,Total < 0.39 MG/DL (0.2-1.0); Blood Urea Nitrogen 23 MG/DL (7-18); Calcium 8.5 MG/DL (8.5-10.1); Glucose 87 MG/DL (74-106); Osmolality,Calculated 290.7 MOS/KG (273-304); Potassium 3.5 MMOL/L (3.5-5.1); Sodium 145 MMOL/L (136-145); Total Protein 6.5 G/DL (6.4-8.3)
--- NOTE | 2016-11-14 02:39 | Order Completion Report ---
See report scanned to EMR
--- NOTE | 2016-11-14 08:35 | Cardiology Consult Note ---
<Bhavani Trotter E - Last Filed: 11/14/16 09:04> Assessment and Plan - Time spent with patient Time spent with patient: Greater than 30 minutes (due to assessment, plan, documentation, and medication review) (1) Chest pain Status: Acute Assessment and plan: See plan of care listed below. Current Visit: Yes (2) Hypertensive urgency Status: Acute Assessment and plan: See plan of care listed below. Current Visit: Yes (3) Dyslipidemia Status: Chronic Assessment and plan: See plan of care listed below. Current Visit: No (4) Diabetes Status: Chronic Assessment and plan: See plan of care listed below. Current Visit: No Qualifiers: Diabetes mellitus type: type 2 (5) Obesity hypoventilation syndrome Status: Chronic Assessment and plan: See plan of care listed below. Current Visit: No (6) Obstructive sleep apnea Status: Chronic Assessment and plan: See plan of care listed below. Current Visit: No (7) Paroxysmal atrial fibrillation Status: Chronic Assessment and plan: See plan of care listed below. Current Visit: No (8) Chronic anticoagulation Status: Chronic Assessment and plan: See plan of care listed below. Current Visit: Yes (9) Chronic renal failure Status: Acute Assessment and plan: See plan of care listed below. Current Visit: Yes Qualifiers: Chronic kidney disease stage: stage 2 (mild) Qualified Code(s): N18.2 - Chronic kidney disease, stage 2 (mild) (10) Congestive heart failure Status: Chronic Assessment and plan: See plan of care listed below. Current Visit: No Qualifiers: Congestive heart failure type: diastolic Congestive heart failure chronicity: chronic Qualified Code(s): I50.32 - Chronic diastolic (congestive ) heart failure History of Present Illness - Data of Consult Patient: known to practice within the last 3 years Consult date: 11/13/16 Requesting Physician: Sherice Jones Primary care physician: Samuel Cheng - Consult Narrative Reason for consult: Chest pain History of present illness: Grizzlyman: Dr. Skinner PCP: Dr. Cheng Mr. Leach is a 71 y/o WM with risk factor significant for: Hypertension, dyslipidemia, type 2 diabetes, obesity, age, sedentary lifestyle. He has a history of paroxysmal atrial fibrillation on chronic anticoagulation, obstructive sleep apnea, prior TIA, chronic renal failure, nonrheumatic aortic stenosis, GERD. Clinic records reviewed. He was recently seen in the clinic by Dr. Skinner on 10/21/2016 in follow-up for complaints of chest pain and dyspnea. He underwent nuclear stress testing on 10/28/2016 and was found to have a normal perfusion study, no evidence of ischemia, low risk for future cardiovascular events, with ejection fraction 71%. Mr. Leach presented to the emergency room yesterday evening for complaints of chest pain that began yesterday morning around 10 AM. He states that this pain started around 10 and lasted until he arrived here. He states this remained constant and did not wax or wane. He describes this as a dull ache located in his left chest wall occasionally radiating up the side of his left neck. He reports he has had some occasional dyspnea on exertion, lightheadedness, and nausea. He denies palpitations, dizziness, syncope, diaphoresis. He can identify no exacerbating or alleviating factors. He rates his pain as an 8 out of 10 lasting all day yesterday. He states that his blood pressure is elevated for most of the day yesterday when checking at home it was over 170/100 and then upon arrival here it was noted to be 232/121. He has had 5 sets of negative troponins. Upon arrival, his potassium was 3.4, up to 3.5 today. His creatinine is 1.6 with GFR 64. Sodium is 145, magnesium 2.2. BNP 14. Lipid panel revealed triglycerides of 130, cholesterol 120, LDL 57, HDL 40. His was 2.0. H&H is stable at 11.2 and 35.0. EKG shows sinus bradycardia, no acute changes from prior EKGs done in the clinic. IMPRESSION/PLAN: 1. CHEST PAIN: With some typical and some atypical features. She did recently have a normal perfusion study at the clinic earlier this month. He has had 5 sets of negative troponins and no acute EKG changes. Will further discuss with Dr. Dukes determine whether he requires further evaluation with left heart catheterization. 2. HYPERTENSION: Currently well controlled. His home medications have been resumed. Will continue to monitor and adjust accordingly. 3. DYSLIPIDEMIA: Continue lipid lowering agent. LDL 57. 4. TYPE 2 DIABETES MELLITUS: He has been started on Accu-Cheks with sliding scale insulin. 5. OBESITY HYPOVENTILATION SYNDROME: Chronic. 6. OBSTRUCTIVE SLEEP APNEA: Continue CPAP while sleeping. Patient reports he only started using his CPAP approximately 2 weeks ago. 7. PAROXYSMAL ATRIAL FIBRILLATION: Currently in normal sinus rhythm. Continue Coreg, aspirin, Coumadin. 8. CHRONIC ANTICOAGULATION: Continue Coumadin. INR 2.0 today. 9. CHRONIC RENAL FAILURE, STAGE 2: Creatinine 1.6. Will continue to avoid nephrotoxic agents. If he requires further evaluation with left heart catheterization, will need to conserve dye use and gently hydrate. 10. CHRONIC DIASTOLIC CHF: Recent echocardiogram done 09/20/2016 revealed moderate LVH, diastolic dysfunction, EF 50-55%, mild MR, trace TR. BNP 14 this admission. He is well compensated at this time. CC: Yi Smith MD - Home Medications and Allergies Home Medications: Home Medications Medication Instructions Recorded Confirmed Type Finasteride [Proscar] 5 mg PO BEDTIME 09/19/16 11/13/16 History Furosemide Tab [Lasix Tab] 80 mg PO QAM 09/19/16 11/13/16 History Magnesium 250 mg PO QAM 09/19/16 11/13/16 History Omeprazole [Prilosec] 20 mg PO QAM 09/19/16 11/13/16 History Tamsulosin [Flomax] 0.4 mg PO BEDTIME 09/19/16 11/13/16 History Warfarin [Coumadin] 4 mg PO SA 09/19/16 11/13/16 History Warfarin [Coumadin] 6 mg PO SUMOTUWETHFR 09/19/16 11/13/16 History glipiZIDE [Glipizide] 10 mg PO BID 09/19/16 11/13/16 History Carvedilol [Coreg] 6.25 mg PO BID #60 tablet 09/23/16 11/13/16 Rx Aspirin EC Tab 81 mg PO QAM 10/02/16 11/13/16 History Atorvastatin Calcium 40 mg PO BEDTIME 10/02/16 11/13/16 History Cholecalciferol (Vitamin D3) 2,000 unit PO QAM 10/02/16 11/13/16 History [Vitamin D3] Isosorbide Dinitrate [Isordil] 20 mg PO TID #90 tablet 10/06/16 11/13/16 Rx Montelukast Tab [Singulair Tab] 10 mg PO BID #60 tablet 10/06/16 11/13/16 Rx hydrALAZINE TAB [Apresoline Tab] 50 mg PO TID #90 tablet 10/06/16 11/13/16 Rx Docusate Sodium 100 mg PO DAILY PRN 11/13/16 11/13/16 History Spironolactone [Aldactone] 25 mg PO BID 11/13/16 11/13/16 History Allergies/Adverse Reactions: Allergies Allergy/AdvReac Type Severity Reaction Status Date / Time No Known Allergies Allergy Verified 11/13/16 19:13 Review of systems: - Constitutional: Present: fatigue, As per HPI. Absent: anorexia, chills, daytime sleepiness, excessive sweating, fever(s), frequent falls, headache(s), increased appetite, lethargy, malaise, night sweats, stops breathing during sleep, weakness, weight gain, weight loss. - EENT Eyes: Present: As per HPI. Absent: blurry vision, diplopia, loss of vision Ears: Present: As per HPI. Absent: decreased hearing, ear discharge, ear pain Nose, mouth and throat: Present: As per HPI. Absent: dysphagia, epistaxis, headache(s), hoarseness, lip swelling, nasal congestion, neck mass, neck pain, sinus pressure, sore throat, throat swelling, tongue swelling, vertigo - Cardiovascular: Present: chest pain at rest, chest pain with activity, dyspnea , dyspnea on exertion, radiating jaw, neck or arm pain, lightheadedness, as per HPI. Absent: edema, claudication, diaphoresis, orthopnea, palpitations, PND - Respiratory: Present: dyspnea, dyspnea on exertion, as per HPI. Absent: cough , hemoptysis, wheezing, snoring, pain on inspiration - Gastrointestinal: Present: nausea, As per HPI. Absent: abdominal pain, bloating, change in bowel habits, constipation, diarrhea, heartburn, hematemesis , hematochezia, loose stools, melena, vomiting - Genitourinary: Present: As per HPI. Absent: difficulty urinating, dysuria, flank pain, hematuria, nocturia, urinary frequency, urinary incontinence - Musculoskeletal: Present: As per HPI. Absent: arthralgias, back pain, joint swelling, limited range of motion, muscle cramps, muscle weakness, myalgias - Neurological: Present: As per HPI. Absent: abnormal gait, abnormal speech, behavioral changes, confusion, convulsions, disequilibrium, dizziness, focal weakness, frequent falls, headache(s), memory loss, numbness, paresthesias, radicular pain, syncope, tremor(s) - Psychiatric: Present: As per HPI. Absent: anxiety, confusion, depression, panic attacks - Endocrine: Present: fatigue, As per HPI. Absent: cold intolerance, heat intolerance, polydipsia, polyphagia - Hematologic/Lymphatic: Present: As per HPI. Absent: easy bleeding, easy bruising, lymphadenopathy Medical,Surgical,& Family Hx - Medical History Cardio: History of: Cardiac Dysrhythmia (Atrial fibrillation), CHF, Hypertension No history of: CAD, VA, Pacemaker Psychological: No history of: Anxiety Disorders Neurology: History of: Cerebrovascular Accident, TIA HEENT: No history of: Ear Problem, Eye Problem Endocrine: History of: Diabetes Mellitus (NIDDM), Dyslipidemia No history of: Adrenal Disease Respiratory: History of: COPD, Obstructive Sleep Apnea No history of: Pulmonary Embolism, Pulmonary Hypertension Renal: No history of: Renal Problems Genitourinary: No history of: Problems Gastrointestinal: History of: GERD Musculoskeletal: History of: Musculoskeletal Problems (Arthritis) Hematology: No history of: Anemia Reproductive: Reports: Reproductive Problems (BPH) - Surgical History Cardiac Surgeries: Sugical HX of: Cardiac Catheterization Neurologic Surgeries: Patient denies: Neurologic Surgery Abdominal Surgeries: Surgical HX of: Abdominal Surgery, Cholecystectomy, Hernia Repair Reproductive Surgeries: Patient denies;: Genitourinary Surgery - Family History Family History: Reports;: Family Cancer (Motherbreast cancer), Family Heart Disease (Father and brother) - Social History Smoking Status: Never smoker Frequency of Alcohol Use: None Type of Drug Use: None Physical Examination Vital Signs Temp Pulse Resp BP Pulse Ox 97.6 F 66 18 232/121 96 11/13/16 19:09 11/13/16 19:09 11/13/16 19:09 11/13/16 19:09 11/13/16 19:09 Exam: General appearance: Appears well. Pleasant and cooperative. Overweight, no acute distress. Head exam: Present: normal inspection, normocephalic, atraumatic. Absent: hematoma, laceration Eye exam: Present: EOMI. Absent: conjunctival injection, nystagmus, periorbital swelling, scleral icterus, laceration to eyelids, jaundice Pupils: Present: PERRL. Absent: constricted, dilated, fixed, irregular, unequal ENT exam: Present: normal exam, normal external ear exam, mucous membranes moist. Neck exam: Present: normal inspection, midline trachea. Absent: masses, lymphadenopathy, tenderness, thyromegaly Respiratory exam: Present: clear to auscultation bilaterally. Absent: accessory muscle use, chest wall tenderness, rales, rhonchi, wheezing. Cardiovascular exam: Present: regular rate and rhythm. Absent: gallop, JVD, rubs, murmur GI/Abdominal exam: Present: normal bowel sounds, soft. Absent: distended, firm , hernia, mass, tenderness. Extremities exam: Present: Normal Gait, No Clubbing, No Cyanosis, Upper Extr. Pulses 2+, Lower Extr. Pulses 2+, No edema. Capillary refill less than 3 seconds. Musculoskeletal: Present: No Fluid Collection, No Pain, Normal Range of Motion Back exam: Present: normal inspection. Absent: muscle spasm, vertebral tenderness Neurological exam: Present: awake, alert, oriented X3, Moves all extremities well without hemiparesis or paralysis. Grossly intact without resting or essential tremor Psychiatric exam: Present: normal affect, normal mood Skin exam: Present: normal color, warm, dry, intact. Absent: cyanosis, diaphoretic, rash, urticaria Result/EKG - Labs CBC & BMP: 11/13/16 19:55 11/14/16 00:35 Lab Results: I have reviewed the past 24 hour labs Labs: Laboratory Results - last 24 hr 11/13/16 11/13/16 11/13/16 19:55 19:55 19:55 WBC RBC Hgb Hct MCV MCH MCHC RDW Plt Count MPV Neut % (Auto) Lymph % (Auto) [place] % (Auto) Eos % (Auto) Baso % (Auto) Neut # (Auto) Lymph # (Auto) [place] # (Auto) Eos # (Auto) Baso # (Auto) Immature Gran % Nucleated RBC % Immature Gran # Nucleated RBCs # Immature Plt Fraction INR 2.0 PT Patient/Control Mix 21.5 Sodium 144 Potassium 3.4 L Chloride 109 H Carbon Dioxide 29 Anion Gap 9.4 BUN 23 H Creatinine 1.60 H GFR Calculation 64 BUN/Creatinine Ratio 14.00 Glucose 102 POC Glucose Calculated Osmolality 289.8 Calcium 8.9 Magnesium 2.2 Total Bilirubin < 0.39 AST 24 ALT 43 Alkaline Phosphatase 60 Troponin I < 0.015 B-Natriuretic Peptide Total Protein 6.7 Albumin 3.5 Globulin 3.2 Albumin/Globulin Ratio 1.0 L Triglycerides Cholesterol LDL Cholesterol VLDL Cholesterol HDL Cholesterol Heart Disease Risk Ratio Lipase 226.0 11/13/16 11/13/16 11/13/16 19:55 19:55 23:06 WBC 8.8 RBC 4.12 Hgb 11.2 L Hct 35.0 L MCV 85.0 L MCH 27 MCHC 32.0 RDW 15.5 Plt Count 239 MPV 10.8 Neut % (Auto) 54.0 Lymph % (Auto) 35.8 [place] % (Auto) 8.2 Eos % (Auto) 1.1 Baso % (Auto) 0.7 Neut # (Auto) 4.8 Lymph # (Auto) 3.2 [place] # (Auto) 0.7 Eos # (Auto) 0.1 Baso # (Auto) 0.1 Immature Gran % 0.2 Nucleated RBC % 0.0 Immature Gran # 0.02 Nucleated RBCs # 0.00 Immature Plt Fraction 0.0 INR PT Patient/Control Mix Sodium Potassium Chloride Carbon Dioxide Anion Gap BUN Creatinine GFR Calculation BUN/Creatinine Ratio Glucose POC Glucose Calculated Osmolality Calcium Magnesium Total Bilirubin AST ALT Alkaline Phosphatase Troponin I < 0.015 B-Natriuretic Peptide 14 Total Protein Albumin Globulin Albumin/Globulin Ratio Triglycerides Cholesterol LDL Cholesterol VLDL Cholesterol HDL Cholesterol Heart Disease Risk Ratio Lipase 11/14/16 11/14/16 11/14/16 00:35 00:35 02:20 WBC RBC Hgb Hct MCV MCH MCHC RDW Plt Count MPV Neut % (Auto) Lymph % (Auto) [place] % (Auto) Eos % (Auto) Baso % (Auto) Neut # (Auto) Lymph # (Auto) [place] # (Auto) Eos # (Auto) Baso # (Auto) Immature Gran % Nucleated RBC % Immature Gran # Nucleated RBCs # Immature Plt Fraction INR PT Patient/Control Mix Sodium 145 Potassium 3.5 Chloride 106 Carbon Dioxide 32 Anion Gap 10.5 BUN 23 H Creatinine 1.60 H GFR Calculation 64 BUN/Creatinine Ratio 14.00 Glucose 87 POC Glucose Calculated Osmolality 290.7 Calcium 8.5 Magnesium Total Bilirubin < 0.39 AST 25 ALT 43 Alkaline Phosphatase 62 Troponin I < 0.015 < 0.015 B-Natriuretic Peptide Total Protein 6.5 Albumin 3.7 Globulin 2.8 Albumin/Globulin Ratio 1.3 Triglycerides Cholesterol LDL Cholesterol VLDL Cholesterol HDL Cholesterol Heart Disease Risk Ratio Lipase 11/14/16 11/14/16 05:32 07:23 WBC RBC Hgb Hct MCV MCH MCHC RDW Plt Count MPV Neut % (Auto) Lymph % (Auto) [place] % (Auto) Eos % (Auto) Baso % (Auto) Neut # (Auto) Lymph # (Auto) [place] # (Auto) Eos # (Auto) Baso # (Auto) Immature Gran % Nucleated RBC % Immature Gran # Nucleated RBCs # Immature Plt Fraction INR PT Patient/Control Mix Sodium Potassium Chloride Carbon Dioxide Anion Gap BUN Creatinine GFR Calculation BUN/Creatinine Ratio Glucose POC Glucose 88 Calculated Osmolality Calcium Magnesium Total Bilirubin AST ALT Alkaline Phosphatase Troponin I B-Natriuretic Peptide Total Protein Albumin Globulin Albumin/Globulin Ratio Triglycerides 130 Cholesterol 120 LDL Cholesterol 57.0 VLDL Cholesterol 26.0 HDL Cholesterol 40 Heart Disease Risk Ratio 3.00 Lipase - Diagnostic Findings Procedure: Chest x-ray: report reviewed by me (No acute cardiopulmonary findings ) - EKG EKG results: interpreted by me, sinus rhythm <Eddie Dukes - Last Filed: 11/14/16 11:43> History of Present Illness - Consult Narrative History of present illness: Patient personally reviewed and examined chart reviewed. I discussed this case with Bhavani Trotter NP. I agree with the assessment and examination. Mr. Leach is a 71 year old male who has had recurrent admissions to the hospital for chest pain. He is changes for about his chest pain a couple times previously had a normal cardiac perfusion study. Because he continued to have recurrent chest pain he should have cardiac catheterization for definitive diagnosis. I discussed cardiac catheterization patient, and grandchild indications benefits and risk he was understanding agrees to proceed. I discussed cardiac catheterization and percutaneous coronary intervention with the patient and available family. I reviewed with them the indications for the procedure and the basis of how the procedure would be carried out. I also reviewed with them the risk of the procedure which include but not necessarily limited to access site bleeding, bruising, pain, swelling or vascular injury that may require emergency vascular surgery, blood transfusion, or thrombin injection. Also discussed the possibility of stroke, myocardial infarction, arrhythmia which may require electrocardioversion, and the possibility of dye reaction that would require medical therapy. Also discussed the possibility of coronary artery injury, ruptured, closure or perforation that may require emergency bypass surgery. We also discussed the possibility of from a major complication. They voice understanding and agree to proceed. CC: Yi Smith MD Physical Examination Vital Signs Temp Pulse Resp BP Pulse Ox 97.6 F 66 18 232/121 96 11/13/16 19:09 11/13/16 19:09 11/13/16 19:09 11/13/16 19:09 11/13/16 19:09 Result/EKG - Labs CBC & BMP: 11/13/16 19:55 11/14/16 00:35 Labs: Laboratory Results - last 24 hr 11/13/16 11/13/16 11/13/16 19:55 19:55 19:55 WBC RBC Hgb Hct MCV MCH MCHC RDW Plt Count MPV Neut % (Auto) Lymph % (Auto) [place] % (Auto) Eos % (Auto) Baso % (Auto) Neut # (Auto) Lymph # (Auto) [place] # (Auto) Eos # (Auto) Baso # (Auto) Immature Gran % Nucleated RBC % Immature Gran # Nucleated RBCs # Immature Plt Fraction INR 2.0 PT Patient/Control Mix 21.5 Sodium 144 Potassium 3.4 L Chloride 109 H Carbon Dioxide 29 Anion Gap 9.4 BUN 23 H Creatinine 1.60 H GFR Calculation 64 BUN/Creatinine Ratio 14.00 Glucose 102 POC Glucose Calculated Osmolality 289.8 Calcium 8.9 Magnesium 2.2 Total Bilirubin < 0.39 AST 24 ALT 43 Alkaline Phosphatase 60 Troponin I < 0.015 B-Natriuretic Peptide Total Protein 6.7 Albumin 3.5 Globulin 3.2 Albumin/Globulin Ratio 1.0 L Triglycerides Cholesterol LDL Cholesterol VLDL Cholesterol HDL Cholesterol Heart Disease Risk Ratio Lipase 226.0 11/13/16 11/13/16 11/13/16 19:55 19:55 23:06 WBC 8.8 RBC 4.12 Hgb 11.2 L Hct 35.0 L MCV 85.0 L MCH 27 MCHC 32.0 RDW 15.5 Plt Count 239 MPV 10.8 Neut % (Auto) 54.0 Lymph % (Auto) 35.8 [place] % (Auto) 8.2 Eos % (Auto) 1.1 Baso % (Auto) 0.7 Neut # (Auto) 4.8 Lymph # (Auto) 3.2 [place] # (Auto) 0.7 Eos # (Auto) 0.1 Baso # (Auto) 0.1 Immature Gran % 0.2 Nucleated RBC % 0.0 Immature Gran # 0.02 Nucleated RBCs # 0.00 Immature Plt Fraction 0.0 INR PT Patient/Control Mix Sodium Potassium Chloride Carbon Dioxide Anion Gap BUN Creatinine GFR Calculation BUN/Creatinine Ratio Glucose POC Glucose Calculated Osmolality Calcium Magnesium Total Bilirubin AST ALT Alkaline Phosphatase Troponin I < 0.015 B-Natriuretic Peptide 14 Total Protein Albumin Globulin Albumin/Globulin Ratio Triglycerides Cholesterol LDL Cholesterol VLDL Cholesterol HDL Cholesterol Heart Disease Risk Ratio Lipase 11/14/16 11/14/16 11/14/16 00:35 00:35 02:20 WBC RBC Hgb Hct MCV MCH MCHC RDW Plt Count MPV Neut % (Auto) Lymph % (Auto) [place] % (Auto) Eos % (Auto) Baso % (Auto) Neut # (Auto) Lymph # (Auto) [place] # (Auto) Eos # (Auto) Baso # (Auto) Immature Gran % Nucleated RBC % Immature Gran # Nucleated RBCs # Immature Plt Fraction INR PT Patient/Control Mix Sodium 145 Potassium 3.5 Chloride 106 Carbon Dioxide 32 Anion Gap 10.5 BUN 23 H Creatinine 1.60 H GFR Calculation 64 BUN/Creatinine Ratio 14.00 Glucose 87 POC Glucose Calculated Osmolality 290.7 Calcium 8.5 Magnesium Total Bilirubin < 0.39 AST 25 ALT 43 Alkaline Phosphatase 62 Troponin I < 0.015 < 0.015 B-Natriuretic Peptide Total Protein 6.5 Albumin 3.7 Globulin 2.8 Albumin/Globulin Ratio 1.3 Triglycerides Cholesterol LDL Cholesterol VLDL Cholesterol HDL Cholesterol Heart Disease Risk Ratio Lipase 11/14/16 11/14/16 11/14/16 05:32 07:23 07:35 WBC RBC Hgb Hct MCV MCH MCHC RDW Plt Count MPV Neut % (Auto) Lymph % (Auto) [place] % (Auto) Eos % (Auto) Baso % (Auto) Neut # (Auto) Lymph # (Auto) [place] # (Auto) Eos # (Auto) Baso # (Auto) Immature Gran % Nucleated RBC % Immature Gran # Nucleated RBCs # Immature Plt Fraction INR PT Patient/Control Mix Sodium Potassium Chloride Carbon Dioxide Anion Gap BUN Creatinine GFR Calculation BUN/Creatinine Ratio Glucose POC Glucose 88 Calculated Osmolality Calcium Magnesium Total Bilirubin AST ALT Alkaline Phosphatase Troponin I < 0.015 B-Natriuretic Peptide Total Protein Albumin Globulin Albumin/Globulin Ratio Triglycerides 130 Cholesterol 120 LDL Cholesterol 57.0 VLDL Cholesterol 26.0 HDL Cholesterol 40 Heart Disease Risk Ratio 3.00 Lipase 11/14/16 11:38 WBC RBC Hgb Hct MCV MCH MCHC RDW Plt Count MPV Neut % (Auto) Lymph % (Auto) [place] % (Auto) Eos % (Auto) Baso % (Auto) Neut # (Auto) Lymph # (Auto) [place] # (Auto) Eos # (Auto) Baso # (Auto) Immature Gran % Nucleated RBC % Immature Gran # Nucleated RBCs # Immature Plt Fraction INR PT Patient/Control Mix Sodium Potassium Chloride Carbon Dioxide Anion Gap BUN Creatinine GFR Calculation BUN/Creatinine Ratio Glucose POC Glucose 145 H Calculated Osmolality Calcium Magnesium Total Bilirubin AST ALT Alkaline Phosphatase Troponin I B-Natriuretic Peptide Total Protein Albumin Globulin Albumin/Globulin Ratio Triglycerides Cholesterol LDL Cholesterol VLDL Cholesterol HDL Cholesterol Heart Disease Risk Ratio Lipase
[2016-11-14] MEDS: ISOSORBIDE DINITRATE 20 MG TABLET PO SCH ×3 (08:48→21:05)
[2016-11-14] MEDS: DOCUSATE SODIUM 100 MG CAPSULE PO SCH ×2 (08:48→21:05)
[2016-11-14] MEDS: ASPIRIN EC 81 MG TABLET PO SCH (08:48)
[2016-11-14] MEDS: CHOLECALCIFEROL 1,000 UNIT TABLET PO SCH (08:48)
[2016-11-14] MEDS: MAGNESIUM OXIDE 400 MG TABLET PO SCH (08:48)
[2016-11-14] MEDS: MONTELUKAST 10 MG TABLET PO SCH ×2 (08:49→21:05)
[2016-11-14] MEDS: PANTOPRAZOLE 40 MG TABLET PO SCH (08:49)
[2016-11-14] MEDS: CARVEDILOL 6.25 MG TABLET PO SCH ×2 (08:49→17:58)
[2016-11-14] MEDS: glipiZIDE 10 MG TABLET PO SCH ×2 (08:53→17:55)
[2016-11-14] MEDS: FUROSEMIDE 40 MG/4 ML VIAL IV SCH ×2 (09:42→17:56)
[2016-11-14] MEDS ORDERED: POTASSIUM CHLORIDE RIDER 10 MEQ in PREMIX 1 EACH IV PRN (11:35)
[2016-11-14] MEDS ORDERED: diphenhydrAMINE CAP 25 MG CAPSULE PO ONE (11:35)
[2016-11-14] MEDS ORDERED: MAGNESIUM SULF RIDER 2 GM in PREMIX 1 EACH IV PRN (11:35)
[2016-11-14] MEDS ORDERED: SODIUM CHLORIDE 0.45% 1,000 ML IV SCH (12:00)
[2016-11-14] MEDS ORDERED: DIAZEPAM 5 MG TABLET PO ONE (12:15)
--- NOTE | 2016-11-14 15:21 | Hospitalist Progress Note ---
Assessment and Plan (1) Chest pain Status: Acute Assessment and plan: [facility] Current Visit: Yes (2) Hypertension Status: Chronic Current Visit: Yes Qualifiers: Hypertension type: essential hypertension Qualified Code(s): I10 - Essential (primary) hypertension (3) Dyslipidemia Status: Chronic Current Visit: No (4) DENY (obstructive sleep apnea) Status: Chronic Current Visit: No (5) Obesity Status: Chronic Current Visit: No Hospitalist: Subjective Interval history: Patient seen and examined. No acute events overnight. Case discussed with nursing staff. Labs reviewed. Awaiting left heart cath today. Exam - Constitutional Vitals: Period Temp Pulse Resp BP Sys/Mane Pulse Ox Last 24 Hr 96.5 F-97.6 F 50-66 16-27 141-232/71-121 95-100 Exam: Constitutional System: No distress. No tremulousness. Morbidly obese Head: Normocephalic, atraumatic. Ears, Nose and Throat System: No pain or tenderness. No epistaxis or discharge Eyes System: Pupils equal, round, and reactive. Extraocular muscles intact. Neck: Supple, without adenopathy, No jugular venous distention. No thyromegaly, neck mass, or prior surgery apparent. Respiratory System: Chest clear to auscultation. Cardiovascular System: Heart with regular rate and rhythm. No murmur. GI System: Abdomen soft, nontender. Normo active bowel sounds present. Musculoskeletal System: limbs with no pedal edema. Full distal pulses. Normal capillary refill. Neurological System: No discernable sensory deficit. No aphasia Psychiatric System: Conversation is rational Results - Labs CBC & BMP: 11/13/16 19:55 11/14/16 00:35 Lab Results: I have reviewed the past 24 hour labs
[2016-11-14] MEDS ORDERED: HEPARIN/NACL 0.9% 2 UNITS/ML 1,000 ML IV ONE (15:23)
[2016-11-14] MEDS ORDERED: LIDOCAINE 1% 20 ML VIAL ONE (15:23)
[2016-11-14] MEDS ORDERED: VERAPAMIL 5 MG/2 ML VIAL ONE (15:40)
[2016-11-14] MEDS ORDERED: NITROGLYCERIN DRIP 50 MG/250 ML BOTTLE IV ONE (15:40)
--- NOTE | 2016-11-14 17:26 | Event Note ---
The patient is doing well post catheterization. Right radial artery area stable. Normal coronary arteries. His blood pressures been an issue. I have increased some his medications. Though from a cardiac catheterization point he can certainly go home. Keep his follow-up appointment with Dr. Skinner.
[2016-11-14] MEDS: amLODIPine 5 MG TABLET PO SCH (18:03)
[2016-11-14] MEDS ORDERED: ATORVASTATIN 40 MG TABLET PO SCH (21:00)
[2016-11-14] MEDS ORDERED: TAMSULOSIN 0.4 MG CAPSULE PO SCH (21:00)
[2016-11-14] MEDS ORDERED: FINASTERIDE 5 MG TABLET PO SCH (21:00)
[2016-11-15 08:09] VITALS: BP 141/71
[2016-11-15] MEDS: CARVEDILOL 6.25 MG TABLET PO SCH (08:37)
[2016-11-15] MEDS: ISOSORBIDE DINITRATE 20 MG TABLET PO SCH (08:38)
[2016-11-15] MEDS: ASPIRIN EC 81 MG TABLET PO SCH (08:39)
[2016-11-15] MEDS: glipiZIDE 10 MG TABLET PO SCH (08:39)
[2016-11-15] MEDS: CHOLECALCIFEROL 1,000 UNIT TABLET PO SCH (08:40)
[2016-11-15] MEDS: MAGNESIUM OXIDE 400 MG TABLET PO SCH (08:40)
[2016-11-15] MEDS: NITROGLYCERIN 2% OINT 1 INCH/GM PACK TOP SCH (08:41)
[2016-11-15] MEDS: DOCUSATE SODIUM 100 MG CAPSULE PO SCH (08:41)
[2016-11-15] MEDS: PANTOPRAZOLE 40 MG TABLET PO SCH (08:42)
[2016-11-15] MEDS: MONTELUKAST 10 MG TABLET PO SCH (08:43)
[2016-11-15] MEDS: amLODIPine 5 MG TABLET PO SCH (08:43)
[2016-11-15] MEDS: FUROSEMIDE 40 MG/4 ML VIAL IV SCH (08:44)
--- NOTE | 2016-11-15 10:09 | Discharge Summary ---
Hospital Course - Hospital Course Hospital Course: Mr. Leach is a 71 y/o WM with risk factor significant for: Hypertension, dyslipidemia, type 2 diabetes, obesity, age, sedentary lifestyle. He has a history of paroxysmal atrial fibrillation on chronic anticoagulation, obstructive sleep apnea, prior TIA, chronic renal failure, nonrheumatic aortic stenosis, GERD. Clinic records reviewed. He was recently seen in the clinic by Dr. Skinner on 10/21/2016 in follow-up for complaints of chest pain and dyspnea. He underwent nuclear stress testing on 10/28/2016 and was found to have a normal perfusion study, no evidence of ischemia, low risk for future cardiovascular events, with ejection fraction 71%. Mr. Leach presented to the emergency room yesterday evening for complaints of chest pain that began yesterday morning around 10 AM. He states that this pain started around 10 and lasted until he arrived here. He states this remained constant and did not wax or wane. He describes this as a dull ache located in his left chest wall occasionally radiating up the side of his left neck. He reports he has had some occasional dyspnea on exertion, lightheadedness, and nausea. He denies palpitations, dizziness, syncope, diaphoresis. He can identify no exacerbating or alleviating factors. He rates his pain as an 8 out of 10 lasting all day yesterday. He states that his blood pressure is elevated for most of the day yesterday when checking at home it was over 170/100 and then upon arrival here it was noted to be 232/121. He has had 5 sets of negative troponins. Upon arrival, his potassium was 3.4, up to 3.5 today. His creatinine is 1.6 with GFR 64. Sodium is 145, magnesium 2.2. BNP 14. Lipid panel revealed triglycerides of 130, cholesterol 120, LDL 57, HDL 40. His was 2.0. H&H is stable at 11.2 and 35.0. EKG shows sinus bradycardia, no acute changes from prior EKGs done in the clinic. IMPRESSION/PLAN: 1. CHEST PAIN: With some typical and some atypical features. She did recently have a normal perfusion study at the clinic earlier this month. He has had 5 sets of negative troponins and no acute EKG changes. Will further discuss with Dr. Dukes determine whether he requires further evaluation with left heart catheterization. 2. HYPERTENSION: Currently well controlled. His home medications have been resumed. Will continue to monitor and adjust accordingly. 3. DYSLIPIDEMIA: Continue lipid lowering agent. LDL 57. 4. TYPE 2 DIABETES MELLITUS: He has been started on Accu-Cheks with sliding scale insulin. 5. OBESITY HYPOVENTILATION SYNDROME: Chronic. 6. OBSTRUCTIVE SLEEP APNEA: Continue CPAP while sleeping. Patient reports he only started using his CPAP approximately 2 weeks ago. 7. PAROXYSMAL ATRIAL FIBRILLATION: Currently in normal sinus rhythm. Continue Coreg, aspirin, Coumadin. 8. CHRONIC ANTICOAGULATION: Continue Coumadin. INR 2.0 today. 9. CHRONIC RENAL FAILURE, STAGE 2: Creatinine 1.6. Will continue to avoid nephrotoxic agents. If he requires further evaluation with left heart catheterization, will need to conserve dye use and gently hydrate. 10. CHRONIC DIASTOLIC CHF: Recent echocardiogram done 09/20/2016 revealed moderate LVH, diastolic dysfunction, EF 50-55%, mild MR, trace TR. BNP 14 this admission. He is well compensated at this time. Thermostat Repairer: Dr. Skinner PCP: Dr. Cheng Patient was seen in consultation by cardiology. He underwent a left heart cath by Dr. Dukes. No significant lesions were noted and no stents were placed. Patient doing well post catheterization. His had no further chest pain. Blood pressure doing well on present medical regimen which can be continued as an outpatient. He is right radial artery area for catheterization is stable and doing well. Again I discussed with him catheterization findings and his chest pain noncardiac. He did request that he keep his follow-up with Dr. Skinner this next at the office. - Time spent with patient Time with patient DS: Greater than 30 minutes (Total discharge time for this patient, including oald-vw-mlup time, clinical documentation, medication reconciliation, and discharge planning was 39 minutes.) Diagnosis - Discharge Diagnosis (1) Chest pain Status: Resolved (2) Hypertension Status: Chronic (3) Dyslipidemia Status: Chronic (4) DENY (obstructive sleep apnea) Status: Chronic (5) Obesity Status: Chronic Specialty Discharge - Follow Up or Referrals Follow up with: Ben Skinner MD [Physician] - (KEEP YOUR SCHEDULED APPOINTMENT WITH DR. SKINNER. ) Discharge Plan - Discharge Data Disposition: Disch To Home/Self Care Condition at Discharge: Stable Discharge Diet: advance to your usual diet Activity: resume usual activities as tolerated Hygiene: no restrictions Weight Bearing at Discharge: full weight bearing Contact your physician if you experience:: fever over 101, Shortness of breath, pain uncontrolled by pain medications - Discharge Medications New hydrALAZINE TAB [Apresoline Tab] 100 mg PO TID #90 tablet amLODIPine [Norvasc] 5 mg PO DAILY #30 tablet Continue Furosemide Tab [Lasix Tab] 80 mg PO QAM glipiZIDE [Glipizide] 10 mg PO BID Omeprazole [Prilosec] 20 mg PO QAM Tamsulosin [Flomax] 0.4 mg PO BEDTIME Warfarin [Coumadin] 6 mg PO SUMOTUWETHFR Warfarin [Coumadin] 4 mg PO SA Carvedilol [Coreg] 6.25 mg PO BID #60 tablet Atorvastatin Calcium 40 mg PO BEDTIME Cholecalciferol (Vitamin D3) [Vitamin D3] 2,000 unit PO QAM Aspirin EC Tab 81 mg PO QAM Isosorbide Dinitrate [Isordil] 20 mg PO TID #90 tablet Montelukast Tab [Singulair Tab] 10 mg PO BID #60 tablet Docusate Sodium 100 mg PO DAILY PRN PRN Reason: STOOL SOFTENER Finasteride [Proscar] 5 mg PO BEDTIME Magnesium 250 mg PO QAM Spironolactone [Aldactone] 25 mg PO BID Discontinued hydrALAZINE TAB [Apresoline Tab] 50 mg PO TID #90 tablet - Follow Up or Referral Follow Up: Ben Skinner MD [Physician] - (KEEP YOUR SCHEDULED APPOINTMENT WITH DR. SKINNER. ) - Forms/Instructions Instructions: Angina (DC), Heart Healthy Diet (DC), Chronic Hypertension (DC) Exam - Constitutional Vitals: Period Temp Pulse Resp BP Sys/Mane Pulse Ox Last 24 Hr 97.1 F-97.9 F 49-63 16-20 120-174/54-93 99-100 Discharge Results Procedures and tests throughout hospitalization: Pending Orders 11/14/16 12:04 CL heart Routine Labs on day of discharge: Labs from last 24 hours 11/15/16 11/14/16 11/14/16 07:04 19:45 16:23 POC Glucose 97 182 H 87 11/14/16 11:38 POC Glucose 145 H DS: Provider Date of admission: 11/13/16 21:47 Primary care physician: Jyotsna Mix Attending physician on admission: Eddie Waterman MD Consults: 11/13/16 23:13 Consult to Physician [CONS] Routine Comment: chest pain Consulting Provider: Chris Bain Person Notified: Robby Date Notified: 11/14/16 Time Notified: 08:30 Discharging clinician: Yi Smith MD Expected date of discharge: 11/15/16
--- NOTE | 2016-11-15 11:15 | Cardiology Progress Note ---
Cardiology - PN: Subj Interval history: Patient doing well post catheterization. His had no further chest pain. Blood pressure doing well on present medical regimen which can be continued as an outpatient. He is right radial artery area for catheterization is stable and doing well. Again I discussed with him catheterization findings and his chest pain noncardiac. He did request that he keep his follow-up with Dr. Skinner this next at the office. Exam (Progress Note) - Constitutional Vitals: Period Temp Pulse Resp BP Sys/Mane Pulse Ox Last 24 Hr 97.1 F-97.9 F 49-63 16-20 120-174/54-93 99-100 Exam: General appearance: Overweight male in no distress sitting in a chair. HEENT: Atraumatic normocephalic without abnormalities. Eye exam is stable with EOMI. Neck: Supple with trachea midline. Lungs: Clear without rales or wheezes. Cardiac: Regular rate and rhythm without murmur gallop or rub. Abdomen obese soft nontender. Extremities: Right wrist at radial artery catheterization site stable. Neurologic: Cooperative without deficits. Psychiatric: Cognitive function grossly intact. Dermatologic: Warm with good turgor. Result/EKG - Labs CBC & BMP: 11/13/16 19:55 11/14/16 00:35 Labs: Laboratory Results - last 24 hr 11/14/16 11/14/16 11/14/16 11:38 16:23 19:45 POC Glucose 145 H 87 182 H 11/15/16 07:04 POC Glucose 97 Specialty Discharge - Follow Up or Referrals Follow up with: Ben Skinner MD [Physician] - (KEEP YOUR SCHEDULED APPOINTMENT WITH DR. SKINNER. )
[2016-11-15] MEDS ORDERED: WARFARIN 4 MG TABLET PO SCH (23:00)
--- NOTE | 2016-11-19 07:47 | Order Completion Report ---
See report scanned to EMR
== END 2016-11-15 11:15 | disposition home or self-care (01) | DRG 287 ==
LOC: N.ED 18:54 → N.EDINP 21:47 → SUATTDRO 21:47 → N.TELEN 22:09
PROVIDERS: ADMIT Internal Medicine; ATTEND Family Medicine
PROC: CLCCHCL (ICD-10-PCS; 2016-11-14 13:15)

== ENCOUNTER 2017-10-26 10:45 | Observation (INO) ==
[2017-10-26 11:33] LABS: Basophils # 0.1 10*3/uL (0.0-0.2); Basophils % 0.7 % (0.0-0.8); Eosinophils # 0.1 10*3/uL (0.0-0.87); Eosinophils % 1.3 % (0.00-10.9); Hematocrit 39.5 VOL% (42.0-52.0); Hemoglobin 12.3 GM/DL (14.0-18.0); Immature Granulocytes % 0.5 %; Immature Granulocytes Absolute 0.05 #; Lymphocytes # 2.3 10*3/uL (1.4-4.0); Lymphocytes % 24.6 % (21.2-54.2); Mean Corpuscular HGB Conc 31.1 GM/DL (32-36); Mean Corpuscular Hemoglobin 25 PG (27-34); Mean Platelet Volume 10.2 FL (9.6-12.0); Monocytes # 0.7 10*3/uL (0.11-0.8); Monocytes % 7.5 % (1.7-12.7); Neutrophils % 65.4 % (38.7-73.9); Platelet Count 256 T/CUMM (130-400); Red Cell Distribution Width 19.6 % (9.3-17.3); White Blood Count 9.2 T/CUMM (4-12)
[2017-10-26 11:34] LABS: Partial Thromboplastin Time 35.3 SECS (0-40)
[2017-10-26 11:39] LABS: INR 2.3
[2017-10-26 12:28] LABS: Albumin 3.6 G/DL (3.4-5.0); Bilirubin,Total 0.5 MG/DL (0.2-1.0); Calcium 8.8 MG/DL (8.5-10.1); Osmolality,Calculated 290.4 MOS/KG (273-304); Potassium 4.7 MMOL/L (3.5-5.1); Total Protein 6.6 G/DL (6.4-8.3)
[2017-10-26] MEDS ORDERED: MORPHINE 4 MG/1 ML VIAL IV STA (13:27)
[2017-10-26] MEDS ORDERED: ASPIRIN 325 MG TABLET PO STA (13:27)
[2017-10-26] MEDS ORDERED: FUROSEMIDE 40 MG/4 ML VIAL IV STA (13:27)
[2017-10-26] MEDS ORDERED: ONDANSETRON 4 MG/2 ML VIAL IV STA (13:27)
[2017-10-26] MEDS ORDERED: ALBUTEROL/IPRATROPIUM 3 ML NEB RESP TX STA (13:27)
[2017-10-26] MEDS ORDERED: ALUM/MAG/SIMETH/LIDO VISC 1:1 30 ML BOTTLE PO STA (13:27)
[2017-10-26] MEDS ORDERED: NITROGLYCERIN 2% OINT 1 INCH/GM PACK TOP STA (13:27)
[2017-10-26] MEDS ORDERED: ONDANSETRON 4 MG/2 ML VIAL IV PRN (14:42)
[2017-10-26] MEDS ORDERED: ACETAMINOPHEN 325 MG TABLET PO PRN (14:42)
[2017-10-26] MEDS ORDERED: DEXTROSE 50% 25 GM/50 ML VIAL IV PRN ×2 (14:44→16:50)
[2017-10-26] MEDS ORDERED: GLUCAGON 1 MG VIAL IM PRN ×2 (14:44→16:50)
[2017-10-26] MEDS ORDERED: DOCUSATE SODIUM 100 MG CAPSULE PO PRN (14:55)
[2017-10-26] MEDS: INSULIN LISPRO 100 UNIT/ML SUBCUT SCH ×2 (17:00→21:44)
[2017-10-26] MEDS: ISOSORBIDE DINITRATE 20 MG TABLET PO SCH ×2 (17:14→21:45)
[2017-10-26] MEDS: FUROSEMIDE 40 MG/4 ML VIAL IV SCH (18:21)
[2017-10-26] MEDS ORDERED: FINASTERIDE 5 MG TABLET PO SCH (21:00)
[2017-10-26] MEDS ORDERED: ATORVASTATIN 40 MG TABLET PO SCH (21:00)
[2017-10-26] MEDS: glipiZIDE 10 MG TABLET PO SCH (21:45)
[2017-10-26] MEDS: TAMSULOSIN 0.4 MG CAPSULE PO SCH (21:45)
[2017-10-26] MEDS: POTASSIUM CHLORIDE 20 MEQ TABLET PO SCH (21:45)
[2017-10-26 21:47] LABS: Apearance,Urine CLEAR (Clear); Bilirubin,Urine Negative (Negative); Blood, Urine Negative (Negative); Glucose,Urine (UA) Negative (Negative); Hyaline Casts,Urine 15 /LPF (0-3); Ketones,Urine Negative (Negative); Mucus,Urine Occasional /LPF (Occasional); Nitrite,Urine Negative (Negative); Protein,Urine Negative; RBC,Urine 4 /HPF (0-4); Urine Color Straw (Yellow); Urine Specific Gravity 1.008 (1.001-1.035); Urine Urobilinogen < 2.0 EU/DL (0.2-1.0); WBC,Urine <1 /HPF (0-6)
[2017-10-26] MEDS: TRIAMCINOLONE 0.1% OINT 15 GM TUBE TOP SCH (22:20)
[2017-10-27 05:18] LABS: Basophils % 0.4 % (0.0-0.8); Eosinophils # 0.1 10*3/uL (0.0-0.87); Eosinophils % 1.7 % (0.00-10.9); Hematocrit 36.9 VOL% (42.0-52.0); Hemoglobin 11.6 GM/DL (14.0-18.0); Immature Granulocytes % 0.5 %; Immature Granulocytes Absolute 0.04 #; Lymphocytes # 2.8 10*3/uL (1.4-4.0); Lymphocytes % 34.1 % (21.2-54.2); Mean Corpuscular HGB Conc 31.4 GM/DL (32-36); Mean Corpuscular Hemoglobin 25 PG (27-34); Mean Platelet Volume 10.4 FL (9.6-12.0); Monocytes # 0.7 10*3/uL (0.11-0.8); Monocytes % 8.5 % (1.7-12.7); Neutrophils # 4.5 10*3/uL (1.4-7.4); Neutrophils % 54.8 % (38.7-73.9); Platelet Count 230 T/CUMM (130-400); Red Blood Count 4.67 MC/CUMM (3.8-5.5); Red Cell Distribution Width 19.3 % (9.3-17.3); White Blood Count 8.2 T/CUMM (4-12)
[2017-10-27 05:49] LABS: Calcium 8.9 MG/DL (8.5-10.1); Potassium 4.3 MMOL/L (3.5-5.1); Risk Ratio 3.97; VLDL CHOLESTEROL 36.8 MG/DL
[2017-10-27] MEDS: INSULIN LISPRO 100 UNIT/ML SUBCUT SCH ×2 (08:20→11:58)
[2017-10-27] MEDS ORDERED: ASPIRIN EC 81 MG TABLET PO SCH (09:00)
[2017-10-27] MEDS ORDERED: OMEGA 3 ACID ETHYL ESTERS 1 GM CAPSULE PO SCH (09:00)
[2017-10-27] MEDS ORDERED: PANTOPRAZOLE 40 MG TABLET PO SCH (09:00)
[2017-10-27] MEDS ORDERED: CHOLECALCIFEROL 1,000 UNIT TABLET PO SCH (09:00)
[2017-10-27] MEDS ORDERED: SPIRONOLACTONE 25 MG TABLET PO SCH (09:00)
[2017-10-27] MEDS ORDERED: WARFARIN 3 MG TABLET PO SCH ×2 (09:00→18:00)
[2017-10-27] MEDS ORDERED: MONTELUKAST 10 MG TABLET PO SCH (09:00)
[2017-10-27] MEDS ORDERED: MAGNESIUM GLUCONATE 500 MG TABLET PO SCH (09:00)
[2017-10-27] MEDS: FUROSEMIDE 40 MG/4 ML VIAL IV SCH (09:20)
[2017-10-27] MEDS: ISOSORBIDE DINITRATE 20 MG TABLET PO SCH (09:21)
[2017-10-27] MEDS: POTASSIUM CHLORIDE 20 MEQ TABLET PO SCH (09:21)
[2017-10-27] MEDS: TAMSULOSIN 0.4 MG CAPSULE PO SCH (09:21)
[2017-10-27] MEDS: glipiZIDE 10 MG TABLET PO SCH (09:21)
[2017-10-27] MEDS: TRIAMCINOLONE 0.1% OINT 15 GM TUBE TOP SCH (09:22)
[2017-10-27 11:16] VITALS: BP 99/73
== END 2017-10-27 13:12 | disposition home or self-care (01) ==
LOC: N.EDINP 10:45 → N.ED 10:45 → N.2E 14:50
PROVIDERS: ADMIT Internal Medicine; ATTEND Internal Medicine